=== PATIENT | male | born 1970 | race Caucasian/White ===

== ENCOUNTER 2018-09-12 19:11 | Emergency (ER) | payer SELFPAY ==
--- NOTE | 2018-09-12 19:56 | ER Document Report ---
HPI - HPI Pain Level: 5 Notes: Patient is a 48-year-old male who presents to the ED complaining of right upper dental pain #2 x2 days. He has not noticed any obvious abscess or purulent discharge. Patient states that he is still able to eat and drink, but does have a decreased p.o. intake due to the pain. He has tried some over-the- counter meds with minimal relief. No other concerns or complaints. Patient states that his tooth fractured yesterday and he has had intermittent sharp pain since. Denies any headache, fever, head injury, neck pain, hoarseness, drooling, URI, sore throat, chest pain, palpitations, syncope, cough, shortness of breath, wheeze, dyspnea, abdominal pain, nausea/vomiting/diarrhea, urinary retention, dysuria, hematuria, or rash. - ROS Systems Reviewed and Negative: Yes All other systems reviewed and negative Past Medical History - Social History Smoking Status: Current Every Day Smoker Frequency of alcohol use: Occasional Drug Abuse: None Family History: Reviewed & Not Pertinent Patient has suicidal ideation: No Patient has homicidal ideation: No - Past Medical History Cardiac Medical History: Reports: Hx Hypertension Renal/ Medical History: Denies: Hx Peritoneal Dialysis Past Surgical History: Reports: Hx Vascular Surgery - leg stent Vertical Provider Document - CONSTITUTIONAL Agree With Documented VS: Yes Notes: PHYSICAL EXAMINATION: GENERAL: Well-appearing, well-nourished and in no acute distress. HEAD: Atraumatic, normocephalic. EYES: Pupils equal round and reactive to light, extraocular movements intact, sclera anicteric, conjunctiva are normal. ENT: EAC clear b/l. TM's intact b/l without erythema, fluid, or perforation. Nares patent and without discharge. oropharynx clear without exudates. No tonsilar hypertrophy or erythema. Moist mucous membranes. No sinus tenderness. Uvula midline. No palatine shift. No tongue protrusion. No respiratory compromise. Mouth: Poor dentition. + severe decay and mild gingivitis. No obvious abscess or discharge noted. No facial swelling. + tenderness to tooth #2. NECK: Normal range of motion, supple without lymphadenopathy. No rigidity/ meningismus. LUNGS: Breath sounds clear to auscultation bilaterally and equal. No wheezes rales or rhonchi. HEART: Regular rate and rhythm without murmurs, rubs, gallops. NEUROLOGICAL: Cranial nerves grossly intact. Normal speech, normal gait. Normal sensory, motor exams PSYCH: Normal mood, normal affect. SKIN: Warm, Dry, normal turgor, no rashes or lesions noted. - INFECTION CONTROL TRAVEL OUTSIDE OF THE [place] IN LAST 30 DAYS: No Course - Re-evaluation Re-evalutation: 09/12/18 20:05 Patient is an afebrile, well-hydrated, 48-year-old male who presents to the ED with dental pain, suspect nerve root etiology versus infection. Vitals are acceptable. PE is otherwise unremarkable. No I&D, labs, or imaging warranted at this time based on H&P. Viscous lidocaine dispensed today. Dental blocked performed today successfully w/o complications. Pt tolerated proc well, no complications. I will send him home with a prescription for cleocin. Low suspicion for any meningitis, sepsis, peritonsillar/pharyngeal abscess, respiratory compromise, Tyron's, temporal arteritis, or other emergent systemic condition at this time. Patient is aware this condition can change from initial presentation and he needs to monitor symptoms closely. Conservative measures otherwise for symptoms. Call to schedule an appointment with a dentist for further evaluation and management. Recheck with your PCM this week as well. Return to the ED with any worsening/concerning symptoms otherwise as reviewed in discharge. Patient is in agreement. - Vital Signs Vital signs: Temp Pulse Resp BP Pulse Ox 98.0 F 76 18 156/99 H 97 09/12/18 19:23 09/12/18 19:23 09/12/18 19:23 09/12/18 19:23 09/12/18 19:23 Procedures - Additional Procedures Dental block Time performed: 20:00 Additional Procedures: Other - Local dental block to #2. Pt tolerated proc well , no complications. Discharge - Discharge Clinical Impression: Pain, dental Condition: Stable Disposition: HOME, SELF-CARE Instructions: Clindamycin ([facility]), Toothache ([facility]) Additional Instructions: [employer] and floss twice daily Maintain fluid intake Take antibiotics as directed Mouthwash, salt water gargles, peroxide rinse as needed Tylenol/ibuprofen as needed Recheck with PCM this week Call today/tomorrow and schedule an appointment with your dentist for further evaluation Return to the ED with any worsening symptoms and/or development of fever, headache, facial swelling, swelling of lips/tongue/throat, trouble swallowing, drooling, hoarseness, neck pain/stiffness, chest pain, palpitations, syncope, shortness of breath, trouble breathing, abdominal pain, n/v/d, numbness/tingling , or other worsening symptoms that are concerning to you. Prescriptions: Benzonatate [Tessalon Perle 100 mg Capsule] 100 mg PO Q8HP PRN #15 cap PRN Reason: Clindamycin HCl [Cleocin 300 mg Capsule] 300 mg PO TID #30 capsule Forms: Elevated Blood Pressure Referrals: [facility] [Provider Group] - Follow up as needed
[2018-09-12] MEDS: BUPIVACAINE HCL 0.75% INJ/PF (7.5 MG/1 ML) 10 ML SDV INJ ONE (20:00)
[2018-09-12 20:15] VITALS: BP 160/114
[2018-09-12] MEDS: LIDOCAINE 2% VISCOUS SOLN 20 ML UDCUP PO ONE (20:21)
== END 2018-09-12 20:24 | disposition home or self-care (01) ==
LOC: ER 19:11
DX: K08.89 Other specified disorders of teeth and supporting structures (principal); K02.9 Dental caries, unspecified; K05.10 Chronic gingivitis, plaque induced; F17.200 Nicotine dependence, unspecified, uncomplicated
CPT/HCPCS: 99282; J3490 ×2

== ENCOUNTER 2018-12-12 15:02 | Emergency (ER) | payer SELFPAY ==
--- NOTE | 2018-12-12 16:06 | ER Document Report ---
ED Medical Screen (RME) - General Chief Complaint: Foot Pain Stated Complaint: LEFT FOOT PAIN, NUMBNESS Time Seen by Provider: 12/12/18 15:53 TRAVEL OUTSIDE OF THE [place] IN LAST 30 DAYS: No - HPI Notes: 12/12/18 16:03 Patient is a 48-year-old male that presents to the emergency department for chief complaint of left foot pain. Patient reports for the last 3-4 days he has had pain and poor perfusion in his left foot. About 7 years ago he had a stent placed in his femoral artery to repair a blockage which was likely related to a knee surgery. He has not had any issues until the last 3-4 days. He states intermittently his right foot will go white and when it does it becomes painful. He states sometimes is hard to feel pulse in the foot. Currently he states that his foot appears normal and he is feeling better. The symptoms do come and go. He denies injury. ROS: GENERAL: Denies fever of chills CV: Denies chest pain PHYSICAL EXAMINATION: GENERAL: Well-appearing, well-nourished and in no acute distress. HEAD: Atraumatic, normocephalic. EYES: Pupils equal round extraocular movements intact, conjunctiva are normal. ENT: Nares patent NECK: Normal range of motion LUNGS: No respiratory distress CV: 4-second capillary refill bilateral feet, +2/4 bilateral DP pulses Musculoskeletal: Normal range of motion NEUROLOGICAL: Normal speech, normal gait. PSYCH: Normal mood, normal affect. MDM: Patient seen and examined for rapid initial assessment. Vital signs reviewed. A comprehensive ED assessment and evaluation of the patient, analysis of test results and completion of the medical decision making process will be conducted by additional ED providers. - Related Data Allergies/Adverse Reactions: Penicillins Allergy (Verified 09/12/18 19:11) Past Medical History - Social History Chew tobacco use (# tins/day): No Frequency of alcohol use: Occasional Drug Abuse: None - Past Medical History Cardiac Medical History: Reports: Hx Hypertension Renal/ Medical History: Denies: Hx Peritoneal Dialysis Past Surgical History: Reports: Hx Appendectomy, Hx Orthopedic Surgery - L acl ,, Hx Vascular Surgery - leg stent Physical Exam - Vital signs Vitals: Temp Pulse Resp BP Pulse Ox 98.1 F 82 16 146/96 H 97 12/12/18 15:05 12/12/18 15:05 12/12/18 15:05 12/12/18 15:05 12/12/18 15:05 Course - Vital Signs Vital signs: Temp Pulse Resp BP Pulse Ox 98.1 F 82 16 146/96 H 97 12/12/18 15:05 12/12/18 15:05 12/12/18 15:05 12/12/18 15:05 12/12/18 15:05
--- NOTE | 2018-12-12 17:25 | RADIOLOGY REPORT (SQ) ---
EXAM DESCRIPTION: VENOUS UNILATERAL LOWER COMPLETED DATE/TIME: 12/12/2018 5:17 pm REASON FOR STUDY: left leg pain COMPARISON: None. TECHNIQUE: Dynamic and static shafer scale and color images acquired of the left leg venous system. Se lected spectral images acquired with additional compression and augmentation maneuvers. The contralat eral common femoral vein and saphenofemoral junction were also imaged. Images stored on PACS. LIMITATIONS: None. FINDINGS: COMMON FEMORAL: Normal phasicity, compression and augmentation. No visualized echogenic ma terial on shafer scale. No defects on color images. FEMORAL: Normal compression and augmentation. No visualized echogenic material on shafer scale. No defe cts on color images. POPLITEAL: Normal compression, augmentation. No visualized echogenic material on shafer scale. No defec ts on color images. CALF VESSELS: Normal compression, augmentation. No visualized echogenic material on shafer scale. No de fects on color images. GSV and SSV: Normal compression, augmentation. No visualized echogenic material on shafer scale. No def ects on color images. ANY DEEP VENOUS INSUFFICIENCY: Not evaluated. ANY EVIDENCE OF POPLITEAL CYST: 4 cm loculated septated popliteal cysts. OTHER: No other significant finding. CONTRALATERAL COMMON FEMORAL VEIN AND SAPHENOFEMORAL JUNCTION: Normal phasicity, compression and augmentation. No visualized echogenic material on shafer scale. No de fects on color images. IMPRESSION: NO EVIDENCE DVT OR SVT IN THE LEFT LEG. Popliteal cyst. TECHNICAL DOCUMENTATION: JOB ID: [id number] [employer]- All Rights Reserved Reading location - IP/workstation name: [email or web address]
--- NOTE | 2018-12-12 17:36 | ER Document Report ---
ED Extremity Problem, Lower - General Chief Complaint: Foot Pain Stated Complaint: LEFT FOOT PAIN, NUMBNESS Time Seen by Provider: 12/12/18 15:53 Mode of Arrival: Ambulatory Information source: Patient Notes: Chief complaint: Right lower leg pain History of complain:( obtained from----patient)Patient is a 48-year-old male that presents to the emergency department for chief complaint of left foot pain. Patient reports for the last 3-4 days he has had pain and poor perfusion in his left foot. About 7 years ago he had a stent placed in his femoral artery to repair a blockage which was likely related to a knee surgery. He has not had any issues until the last 3-4 days. He states intermittently his right foot will go white and when it does it becomes painful. He states sometimes is hard to feel pulse in the foot. Onset: As above Duration: Gradual Severity: Mild to moderate variable Quality: Sharp Context: Peripheral vascular disease Exacerbating factor and relieving factors: Standing for long time REVIEW OF SYSTEMS: CONSTITUTIONAL : Denies fever, chills, or sweats. Denies recent illness. EENT: Denies eye, ear, throat, or mouth pain or symptoms. Denies nasal or sinus congestion or discharge. Denies throat, tongue, or mouth swelling or difficulty swallowing. CARDIOVASCULAR: Denies chest pain. Denies palpitations or racing or irregular heart beat. Denies ankle edema. RESPIRATORY: Denies cough, cold, or chest congestion. Denies shortness of breath, difficulty breathing, or wheezing. GASTROINTESTINAL: Denies distention. Denies nausea, vomiting, or diarrhea. Denies blood in vomitus, stools, or per rectum. Denies black, tarry stools. Denies constipation. GENITOURINARY: Denies difficulty urinating, painful urination, burning, frequency, blood in urine, or discharge. FEMALE GENITOURINARY: Denies vaginal bleeding, heavy or abnormal periods, irregular periods. Denies vaginal discharge or odor. MUSCULOSKELETAL: Denies back or neck pain or stiffness. Denies joint pain or swelling. SKIN: Denies rash, lesions or sores. HEMATOLOGIC : Denies easy bruising or bleeding. LYMPHATIC: Denies swollen, enlarged glands. NEUROLOGICAL: Denies confusion or altered mental status. Denies passing out or loss of consciousness. Denies dizziness or lightheadedness. Denies headache. Denies weakness or paralysis or loss of use of either side. Denies problems with gait or speech. Denies sensory loss, numbness, or tingling. Denies seizures. PSYCHIATRIC: Denies anxiety or stress. Denies depression, suicidal ideation, or homicidal ideation. ALL OTHER SYSTEMS REVIEWED AND NEGATIVE. PHYSICAL EXAMINATION: GENERAL: Well-appearing, well-nourished and in no acute distress. HEAD: Atraumatic, normocephalic. EYES: Pupils equal round and reactive to light, extraocular movements intact, conjunctiva are normal. ENT: Nares patent, oropharynx clear without exudates. Moist mucous membranes. NECK: Normal range of motion, supple without lymphadenopathy LUNGS: Breath sounds clear to auscultation bilaterally and equal. No wheezes rales or rhonchi. HEART: Regular rate and rhythm without murmurs ABDOMEN: Soft, nontender, nondistended abdomen. No guarding, no rebound. No masses appreciated. Examination of genitals-deferred Musculoskeletal: Normal range of motion, no pitting or edema. No cyanosis. Left lower leg shows -normal skin color. No loss of hair, good dorsalis pedis and posterior tibialis pulses. Nontender on palpation. NEUROLOGICAL: Cranial nerves grossly intact. Normal speech, normal gait. Normal sensory, motor exams PSYCH: Normal mood, normal affect. SKIN: Warm, Dry, normal turgor, no rashes or lesions noted. Dictation was performed using [email or web address] voice recognition software TRAVEL OUTSIDE OF THE [place] IN LAST 30 DAYS: No - HPI Notes: Dictated - Related Data Allergies/Adverse Reactions: Penicillins Allergy (Verified 09/12/18 19:11) Past Medical History - Social History Smoking Status: Current Every Day Smoker Chew tobacco use (# tins/day): No Smoking Education Provided: Yes Frequency of alcohol use: Occasional Drug Abuse: None Lives with: Family Family History: Reviewed & Not Pertinent Patient has suicidal ideation: No Patient has homicidal ideation: No - Past Medical History Cardiac Medical History: Reports: Hx Hypertension Renal/ Medical History: Denies: Hx Peritoneal Dialysis Past Surgical History: Reports: Hx Appendectomy, Hx Orthopedic Surgery - L acl ,, Hx Vascular Surgery - leg stent Review of Systems - Review of Systems Notes: Dictated Physical Exam - Vital signs Vitals: Temp Pulse Resp BP Pulse Ox 98.1 F 82 16 146/96 H 97 12/12/18 15:05 12/12/18 15:05 12/12/18 15:05 12/12/18 15:05 12/12/18 15:05 - Notes Notes: Dictated Course - Re-evaluation Re-evalutation: 12/12/18 17:35 He was explained that at this point we do not need to do anything in the emergency room but he to follow-up with primary care physician to do complete blood work including cholesterol. And possibly vascular studies. Smoking cessation is discussed to - Vital Signs Vital signs: Temp Pulse Resp BP Pulse Ox 98.1 F 82 16 146/96 H 97 12/12/18 15:05 12/12/18 15:05 12/12/18 15:05 12/12/18 15:05 12/12/18 15:05 Discharge - Discharge Clinical Impression: Leg pain, left Condition: Fair Disposition: HOME, SELF-CARE Instructions: Leg Pain Nonspecific ([facility]), Peripheral Vascular Disease ([facility])
[2018-12-12 17:54] VITALS: BP 158/107
== END 2018-12-12 17:55 | disposition home or self-care (01) ==
LOC: ER 15:02
DX: M79.672 Pain in left foot (principal); Z95.820 Peripheral vascular angioplasty status with implants and grafts; I10 Essential (primary) hypertension; F17.200 Nicotine dependence, unspecified, uncomplicated; Z71.6 Tobacco abuse counseling; Z88.0 Allergy status to penicillin
CPT/HCPCS: 93971; 99284

== ENCOUNTER 2019-04-22 18:03 | Emergency (ER) | payer OTHER ==
[2019-04-22] MEDS ORDERED: KETOROLAC TROMETHAMINE INJ/PF 30 MG/1 ML SDV IV ONE (18:30)
[2019-04-22] MEDS ORDERED: ONDANSETRON HCL INJ/PF 4 MG/2 ML SDV IV ONE (18:30)
--- NOTE | 2019-04-22 18:43 | ER Document Report ---
ED Medical Screen (RME) - General Chief Complaint: Abdominal Pain Stated Complaint: ABDOMINAL/GROIN PAIN Time Seen by Provider: 04/22/19 18:22 Mode of Arrival: Ambulatory Information source: Patient TRAVEL OUTSIDE OF THE [place] IN LAST 30 DAYS: No - HPI Patient complains to provider of: LEFT GROING PAIN Notes: 04/22/19 18:31 Patient is here with complaints of left groin pain. The patient states that he twisted at work few weeks ago to avoid falling and injuring himself and has had left groin pain since. He does a lot of heavy lifting and states the pain seems to be getting worse and he feels like he has some mild swelling in the left groin area. He also feels like he has not been having normal bowel movements and vomited. Exam Nontoxic, no distress. Lungs clear and equal throughout. Heart sounds normal. Left inguinal tenderness with no obvious mass. No obvious scrotal mass or hernia. Plan CBC, CMP, lipase, urine, saline lock, Toradol, Zofran, CT abdomen pelvis with IV contrast. An initial examination was made on the patient as part of the triage process, and it was determined a more comprehensive evaluation was necessary. Initial labs were ordered and patient was transferred to another provider in the ED who assumed care and finished evaluation and plan. - Related Data Allergies/Adverse Reactions: Penicillins Allergy (Verified 04/22/19 18:04) Past Medical History - Past Medical History Cardiac Medical History: Reports: Hx Hypertension Renal/ Medical History: Denies: Hx Peritoneal Dialysis Past Surgical History: Reports: Hx Appendectomy, Hx Orthopedic Surgery - L acl ,, Hx Vascular Surgery - leg stent Physical Exam - Vital signs Vitals: Temp Pulse Resp BP Pulse Ox 97.9 F 80 18 157/96 H 96 04/22/19 18:08 04/22/19 18:08 04/22/19 18:08 04/22/19 18:08 04/22/19 18:08 Course - Vital Signs Vital signs: Temp Pulse Resp BP Pulse Ox 97.9 F 80 18 157/96 H 96 04/22/19 18:08 04/22/19 18:08 04/22/19 18:08 04/22/19 18:08 04/22/19 18:08
[2019-04-22 18:50] LABS: ABSOLUTE BASOPHILS # (AUTO) 0.1 10^3/uL (0.0-0.2); ABSOLUTE EOSINOPHILS # (AUTO) 0.2 10^3/uL (0.0-0.6); ABSOLUTE LYMPHOCYTES (AUTO) 2.1 10^3/uL (0.5-4.7); ABSOLUTE MONOCYTES (AUTO) 0.8 10^3/uL (0.1-1.4); ABSOLUTE NEUT (AUTO) 6.5 10^3/uL (1.7-8.2); BASOPHILS % (AUTO) 1.2 % (0-2); EOSINOPHILS % (AUTO) 1.9 % (0-6); HEMATOCRIT 45.6 % (37.9-51.0); HEMOGLOBIN 15.9 g/dL (13.5-17.0); LYMPHOCYTES % (AUTO) 21.8 % (13-45); MEAN CORPUSCULAR HEMOGLOBIN 33.5 pg (27.0-33.4); MEAN CORPUSCULAR HGB CONC 34.9 g/dL (32.0-36.0); MEAN CORPUSCULAR VOLUME 96 fl (80-97); PLATELET COUNT 224 10^3/uL (150-450); RED BLOOD COUNT 4.75 10^6/uL (4.35-5.55); RED CELL DISTRIBUTION WIDTH 13.4 % (11.5-14.0); SEGMENTED NEUTROPHILS % (AUTO) 67.1 % (42-78); TOTAL CELLS COUNTED % (AUTO) 100 %; WHITE BLOOD COUNT 9.7 10^3/uL (4.0-10.5)
[2019-04-22 19:05] LABS: ALANINE AMINOTRANSFERASE 64 U/L (21-72); ALBUMIN 4.7 g/dL (3.5-5.0); ALKALINE PHOSPHATASE 93 U/L (38-126); ANION GAP 10 (5-19); ASPARTATE AMINO TRANSFERASE 46 U/L (17-59); BILIRUBIN,DIRECT 0.4 mg/dL (0.0-0.4); BILIRUBIN,TOTAL 1.1 mg/dL (0.2-1.3); BLOOD UREA NITROGEN 11 mg/dL (7-20); CALCIUM 9.8 mg/dL (8.4-10.2); CARBON DIOXIDE 30 mmol/L (22-30); CHLORIDE 102 mmol/L (98-107); GLUCOSE 123 mg/dL (75-110); LIPASE 133.2 U/L (23-300); POTASSIUM 4.5 mmol/L (3.6-5.0); SODIUM 141.6 mmol/L (137-145); TOTAL PROTEIN 8.3 g/dL (6.3-8.2)
[2019-04-22 20:12] LABS: APPEARANCE,URINE SLIGHTLY-CLOUDY; BILIRUBIN,URINE NEGATIVE (NEGATIVE); GLUCOSE, URINE NEGATIVE (NEGATIVE); KETONES,URINE TRACE mg/dL (NEGATIVE); LEUKOCYTE ESTERASE,URINE NEGATIVE (NEGATIVE); NITRITE,URINE NEGATIVE (NEGATIVE); PROTEIN,URINE 30 mg/dL (NEGATIVE); URINE SPECIFIC GRAVITY 1.028; UROBILINOGEN,URINE NEGATIVE mg/dL (<2.0)
[2019-04-22 20:13] LABS: COLOR,URINE YELLOW
--- NOTE | 2019-04-22 20:22 | RADIOLOGY REPORT (SQ) ---
CT ABDOMEN PELVIS WITH IV CONTRAST HISTORY: Left groin pain. COMPARISON: None. TECHNIQUE: CT scan of the abdomen and pelvis was performed with IV contrast. This exam was performed according to our departmental dose-optimization program, which includes automated exposure control, adjustment of the mA and/or kV according to patient size and/or use of iterative reconstruction technique. FINDINGS: The lung bases are clear. No pleural or pericardial effusions. There is no hiatal hernia. Hepatic steatosis. The gallbladder, spleen, pancreas, adrenal glands, and kidneys are normal. No hydronephrosis. The pelvic organs are normal. There are scattered colonic diverticula without surrounding inflammatory changes. No small bowel obstruction. The appendix is not seen. No intraperitoneal free fluid or free air is seen. The aorta is normal caliber. No acute osseous findings are appreciated. There is a small left fat-containing inguinal hernia, without inflammatory changes. IMPRESSION: 1. Small left fat-containing inguinal hernia, without bowel loops or inflammatory changes in the hernia sac. 2. Diverticulosis without inflammatory changes.
[2019-04-22] MEDS ORDERED: MORPHINE SULFATE 10 MG/ML INJ IV ONE (22:54)
--- NOTE | 2019-04-22 23:04 | ER Document Report ---
ED General - General Chief Complaint: Abdominal Pain Stated Complaint: ABDOMINAL/GROIN PAIN Time Seen by Provider: 04/22/19 18:22 Primary Care Provider: ENRIQUE HEWITT MD [LOURDES CASTRO] - Follow up in 3-5 days Mode of Arrival: Ambulatory Notes: Patient is a 49-year-old male that presents to the emergency department for chief complaint of left groin pain. Patient states that his been having some pain in his left side over the past few weeks, and it has made his way down into his groin, he thinks he may have had an injury at work, where he twisted and awkward way, after lifting a heavy object. He also states he has been constipated and straining in the bathroom. Is a history of a inguinal hernia on the right, which she had surgery for in the past. He thinks he may have a hernia now on the left side. He had an episode of vomiting, but states that his nausea is well controlled now. Denies any any blood in the urine, or having any significant dysuria or hematuria. He also denies any recent fevers, chills, night sweats. He currently rates his pain as a 6 out of 10 describes as a sharp pain in his left groin, constant in nature. Past Medical History: Hypertension, peripheral vascular disease Past Surgical History: Hernia repair, ACL repair, stents in his right lower e xtremity Social History: Admits to smoking cigarettes and occasional alcohol use, denies illicit drug use. Family History: Reviewed and noncontributory for presenting illness Allergies: Reviewed, see documented allergy list. REVIEW OF SYSTEMS: Other than noted above, the 12 point review of systems was reviewed with the patient and were negative, all pertinent findings are included in the HPI. PHYSICAL EXAMINATION: Vital signs reviewed, nursing noted reviewed. GENERAL: Well-appearing, well-nourished and in no acute distress. HEAD: Atraumatic, normocephalic. EYES: Eyes appear normal, extraocular movements intact, sclera anicteric, conjunctiva are normal. ENT: nares patent, oropharynx clear without exudates. Moist mucous membranes. NECK: Normal range of motion, supple without lymphadenopathy LUNGS: Breath sounds clear to auscultation bilaterally and equal. No wheezes rales or rhonchi. HEART: Regular rate and rhythm without murmurs ABDOMEN: Soft, left lower quadrant tenderness with palpation, normoactive bowel sounds. No rebound, guarding, or rigidity. No masses appreciated. Male genital: There is no palpable inguinal hernia on the left or the right with Valsalva. Testicles are normal vertical lie, intact cremasteric reflex bilaterally, no testicular tenderness or masses appreciated, no bloody discharge at the meatus, otherwise normal exam. EXTREMITIES: Nontender, good range of motion, no pitting or edema. NEUROLOGICAL: No focal neurological deficits. Moves all extremities spontaneously Motor and sensory grossly intact on exam. PSYCH: Normal mood, normal affect. SKIN: Warm, Dry, normal turgor, no rashes or lesions noted on exposed skin TRAVEL OUTSIDE OF THE [place] IN LAST 30 DAYS: No - Related Data Allergies/Adverse Reactions: Penicillins Allergy (Verified 04/22/19 18:04) Past Medical History - General Information source: Patient - Social History Smoking Status: Current Every Day Smoker Family History: Reviewed & Not Pertinent Patient has suicidal ideation: No Patient has homicidal ideation: No - Past Medical History Cardiac Medical History: Reports: Hx Hypertension Renal/ Medical History: Denies: Hx Peritoneal Dialysis Past Surgical History: Reports: Hx Appendectomy, Hx Orthopedic Surgery - L acl , , Hx Vascular Surgery - leg stent Physical Exam - Vital signs Vitals: Temp Pulse Resp BP Pulse Ox 97.9 F 80 18 157/96 H 96 04/22/19 18:08 04/22/19 18:08 04/22/19 18:08 04/22/19 18:08 04/22/19 18:08 Course - Re-evaluation Re-evalutation: Patient seen and examined vital signs reviewed. Laboratory data and/or imaging were ordered as appropriate for the patient's presenting symptoms and complaint, with consideration of any critical or life threatening conditions that may be associated with their obtained history and exam as noted above. Patient was treated with Zofran and Toradol in triage, he was given IV morphine as his pain did come back. Results were reviewed when available and demonstrated small left fat-containing inguinal hernia, likely explain the patient's symptoms, his blood work is also unremarkable. The patient was re-evaluated and was stable Evaluation was most consistent with left inguinal hernia, fat-containing, nonemergent, nonobstructive, plan for discharge home with NSAIDs, follow-up with surgery, he is also given prescription for MiraLAX to treat his constipation that he is been describing. Results were discussed with the patient at this point, after careful consideration I feel that that patient can be discharged from the emergency department, the patient was educated treatments and reasons to return to the emergency department based on their presumed diagnosis as noted above, they were advised to followup with a primary care physician in 2-3 days. Patient was agreeable to plan of care. *Note is created using voice recognition software and may contain spelling, syntax or grammatical errors. Laboratory 04/22/19 04/22/19 04/22/19 18:30 18:30 19:25 WBC 9.7 RBC 4.75 Hgb 15.9 Hct 45.6 MCV 96 MCH 33.5 H MCHC 34.9 RDW 13.4 Plt Count 224 Seg Neutrophils % 67.1 Lymphocytes % 21.8 Monocytes % 8.0 Eosinophils % 1.9 Basophils % 1.2 Absolute Neutrophils 6.5 Absolute Lymphocytes 2.1 Absolute Monocytes 0.8 Absolute Eosinophils 0.2 Absolute Basophils 0.1 Sodium 141.6 Potassium 4.5 Chloride 102 Carbon Dioxide 30 Anion Gap 10 BUN 11 Creatinine 1.14 Est GFR ( Amer) > 60 Est GFR (Non-Af Amer) > 60 Glucose 123 H Calcium 9.8 Total Bilirubin 1.1 Direct Bilirubin 0.4 Neonat Total Bilirubin Not Reportable Neonat Direct Bilirubin Not Reportable Neonat Indirect Bili Not Reportable AST 46 ALT 64 Alkaline Phosphatase 93 Total Protein 8.3 H Albumin 4.7 Lipase 133.2 Urine Color YELLOW Urine Appearance SLIGHTLY-CLOUDY Urine pH 5.0 Ur Specific [place] 1.028 Urine Protein 30 H Urine Glucose (UA) NEGATIVE Urine Ketones TRACE H Urine Blood NEGATIVE Urine Nitrite NEGATIVE Urine Bilirubin NEGATIVE Urine Urobilinogen NEGATIVE Ur Leukocyte Esterase NEGATIVE Urine WBC (Auto) 0 Urine RBC (Auto) 1 Urine Mucus (Auto) FEW Urine Ascorbic Acid NEGATIVE Abdomen/Pelvis CT 04/22/19 18:31 IMPRESSION: 1. Small left fat-containing inguinal hernia, without bowel loops or inflammatory changes in the hernia sac. 2. Diverticulosis without inflammatory changes. - Vital Signs Vital signs: Temp Pulse Resp BP Pulse Ox 97.9 F 80 18 157/96 H 96 04/22/19 18:08 04/22/19 18:08 04/22/19 18:08 04/22/19 18:08 04/22/19 18:08 - Laboratory Result Diagrams: 04/22/19 18:30 04/22/19 18:30 Laboratory results interpreted by me: 04/22/19 04/22/19 04/22/19 18:30 18:30 19:25 MCH 33.5 H Glucose 123 H Total Protein 8.3 H Urine Protein 30 H Urine Ketones TRACE H Discharge - Discharge Clinical Impression: Left inguinal hernia Condition: Stable Disposition: HOME, SELF-CARE Instructions: Hernia ([facility]) Additional Instructions: Please take all medications as prescribed, and please follow-up with the surgeon, call for an appointment tomorrow. Prescriptions: Ibuprofen [Motrin 600 Mg Tablet] 600 mg PO TID #15 tablet Ondansetron [Zofran Odt 4 mg Tablet] 1 tab PO Q8H PRN #15 tab.rapdis PRN Reason: For Nausea/Vomiting Polyethylene Glycol 3350 [Miralax] 17 gm PO DAILY #238 gm Referrals: ENRIQUE HEWITT MD [LOURDES CASTRO] - Follow up in 3-5 days
[2019-04-22 23:16] VITALS: BP 153/95
== END 2019-04-22 23:25 | disposition home or self-care (01) ==
LOC: ER 18:03
DX: K40.90 Unilateral inguinal hernia, without obstruction or gangrene, not specified as recurrent (principal); R10.9 Unspecified abdominal pain; R10.30 Lower abdominal pain, unspecified; R10.32 Left lower quadrant pain; R11.10 Vomiting, unspecified; X50.0XXA Overexertion from strenuous movement or load, initial encounter; I10 Essential (primary) hypertension; F17.210 Nicotine dependence, cigarettes, uncomplicated
CPT/HCPCS: 99284; 96374; 96375; 36415; 83690; 85025; 80053; 81001; 74177; J1885; J2270; J2405

== ENCOUNTER 2019-09-22 10:23 | Emergency (ER) | payer SELFPAY ==
[2019-09-22] MEDS ORDERED: COLCHICINE 0.6 MG TABLET PO ONE ×2 (11:11)
[2019-09-22] MEDS ORDERED: OXYCODONE-ACETAMINOPHEN 5-325 MG TABLET PO ONE (11:12)
--- NOTE | 2019-09-22 11:25 | ER Document Report ---
HPI - HPI Time Seen by Provider: 09/22/19 11:03 Pain Level: 5 Notes: Patient is a 49-year-old male with past medical history of hypertension presenting to the emergency department with complaint of left foot pain. Patient reports pain has been ongoing for 1 week, states that the pain started in the left great toe and is now progressed up into the foot. He denies any injury. He states pain is worsened and now has swelling and redness. Patient reports that it is very painful to the touch. He also reports he has been out of his high blood pressure medications for a few months. - CONSTITUTIONAL Constitutional: DENIES: Fever, Chills - MUSCULOSKELETAL Musculoskeletal: REPORTS: Extremity pain - right foot - DERM Skin Color: Erythema Past Medical History - General Information source: Patient - Social History Smoking Status: Current Every Day Smoker Frequency of alcohol use: Occasional Drug Abuse: None Family History: Reviewed & Not Pertinent Patient has suicidal ideation: No Patient has homicidal ideation: No - Past Medical History Cardiac Medical History: Reports: Hx Hypertension Renal/ Medical History: Denies: Hx Peritoneal Dialysis Past Surgical History: Reports: Hx Appendectomy, Hx Orthopedic Surgery - L acl , , Hx Vascular Surgery - leg stent Vertical Provider Document - CONSTITUTIONAL Notes: PHYSICAL EXAMINATION: GENERAL: Well-appearing, well-nourished and in no acute distress. HEAD: Atraumatic, normocephalic. EYES: Pupils equal round and reactive to light, extraocular movements intact, sclera anicteric, conjunctiva are normal. ENT: Nares patent, oropharynx clear without exudates. Moist mucous membranes. NECK: Normal range of motion, supple without lymphadenopathy LUNGS: Breath sounds clear to auscultation bilaterally and equal. No wheezes rales or rhonchi. HEART: Regular rate and rhythm without murmurs ABDOMEN: Soft, nontender, nondistended abdomen. No guarding, no rebound. No masses appreciated. Musculoskeletal: Swelling and erythema noted to left foot originating at the great toe with slight extension to the dorsal surface of the foot. Tenderness with any palpation. No heat noted. Strong dorsalis pedis pulse, cap refill less than 3 seconds. NEUROLOGICAL: Cranial nerves grossly intact. Normal speech. Normal sensory, motor exams PSYCH: Normal mood, normal affect. SKIN: Warm, Dry, normal turgor, no rashes or lesions noted. - INFECTION CONTROL TRAVEL OUTSIDE OF THE [place] IN LAST 30 DAYS: No Course - Re-evaluation Re-evalutation: Foot X-Ray 09/22/19 11:11 IMPRESSION: NEGATIVE STUDY OF THE LEFT FOOT. NO RADIOGRAPHIC EVIDENCE OF ACUTE INJURY. Examination is most consistent with acute gout attack. Patient given colchicine here in the emergency department. Patient will be discharged home with refill for his antihypertensives. Patient encouraged to follow-up with primary care. Discussed ED return precautions. Patient verbalized understanding and agreement with same. - Vital Signs Vital signs: Temp Pulse Resp BP Pulse Ox 97.9 F 93 16 152/103 H 96 09/22/19 10:32 09/22/19 10:32 09/22/19 10:32 09/22/19 10:32 09/22/19 10:32 Discharge - Discharge Clinical Impression: Left foot pain Hypertension Qualifiers: Hypertension type: unspecified Qualified Code(s): I10 - Essential (primary) hypertension Gout Qualifiers: Gout site: foot Gout etiology: unspecified cause Chronicity: acute Laterality: left Qualified Code(s): M10.9 - Gout, unspecified Condition: Stable Disposition: HOME, SELF-CARE Additional Instructions: Gout You have been diagnosed as having gout. Gout is a problem caused by an excess of uric acid, a natural chemical found in the body. The cause of this disease is unknown. Gout arthritis occurs when crystals of uric acid form in the joints. The big toe is the most common joint involved, but any joint can become affected. Persons with gout may also form uric acid kidney stones, resulting in flank pain and blood in the urine. Nodules of uric acid may form under the skin. The first step of treatment is to decrease the inflammation in the joint with antiinflammatory medication. Medication to lower the uric acid level in the blood may then be prescribed. This medication should be taken regularly, as any sudden change in dosage may provoke an attack of gout. Some foods, such as red meat, can provoke an attack in some gout sufferers. Call the doctor if new symptoms arise, or if you do not improve. Gout Diet Changing your diet can decrease the uric acid in your blood. High levels of uric acid cause gouty arthritis and uric acid kidney stones. If you have gout, you should avoid meats that are high in purine. Meat products to avoid include liver, kidneys, and brains. In general, poultry is better than red meats. Seafoods to avoid include anchovies, sardines, serna, mackerel, and scallops. In addition to limiting purine-rich foods, people with gout should limit protein intake to 10-15% of total calories. Carbohydrate intake should be around 50% of total daily calories. Limit fat intake to 30% of total daily calories. Cholesterol intake should be less than 300 mg/day. Maintain or achieve a healthy body weight. Weight loss should be gradual. Rapid weight loss can actually increase uric acid levels temporarily. Alcohol, especially beer, should be avoided. Get plenty of fluids. This dilutes urinary uric acid, and helps prevent uric acid kidney stones. Drink eight to twelve cups of water daily. The x-ray of your foot was negative for any fracture or dislocation. I have refilled your blood pressure medication today and gave you 2 refills. Please establish care with a primary care provider. If you do not have insurance or cannot afford a doctor you may try to establish care at the [facility]. I believe the pain and swelling in her foot is being caused by gout. There is some informational reading above regarding gout and diet that will help avoid gout flareups. The #1 treatment for gout is the combination of the 3 tablets that we gave you here in the emergency department. After that the main course of treatment is ibuprofen. Please continue to take ibuprofen 600 mg every 6 hours. Use the narcotic pain medication I have sent you home with for severe pain only. Prescriptions: Hydrocodone Bit/Acetaminophen [Hydrocodon-Acetaminophen 5-325] 1 each PO Q6H #10 tablet Lisinopril [Prinivil] 20 mg PO DAILY #30 tablet Forms: Return to Work
--- NOTE | 2019-09-22 12:31 | RADIOLOGY REPORT (SQ) ---
EXAM DESCRIPTION: FOOT LEFT COMPLETE COMPLETED DATE/TIME: 09/22/2019 12:15 pm REASON FOR STUDY: left foot swelling/pain COMPARISON: None. NUMBER OF VIEWS: Three views. TECHNIQUE: AP, lateral and oblique radiographic images acquired of the left foot. LIMITATIONS: None. FINDINGS: MINERALIZATION: Normal. BONES: There is an old oblique fracture of the 5th metatarsal. No acute fracture or dislocation. JOINTS: No effusions. SOFT TISSUES: No soft tissue swelling. No foreign body. OTHER: No other significant finding. IMPRESSION: NEGATIVE STUDY OF THE LEFT FOOT. NO RADIOGRAPHIC EVIDENCE OF ACUTE INJURY. TECHNICAL DOCUMENTATION: JOB ID: [id number] [employer]- All Rights Reserved Reading location - IP/workstation name: [email or web address]
[2019-09-22 12:53] VITALS: BP 144/102
== END 2019-09-22 13:04 | disposition home or self-care (01) ==
LOC: ER 10:23
DX: M79.672 Pain in left foot (principal); M10.9 Gout, unspecified; I10 Essential (primary) hypertension; Z79.899 Other long term (current) drug therapy; F17.200 Nicotine dependence, unspecified, uncomplicated
CPT/HCPCS: 99283

== ENCOUNTER 2019-12-21 23:06 | Emergency (ER) | payer OTHER ==
--- NOTE | 2019-12-21 23:41 | ER Document Report ---
ED Medical Screen (RME) - General Chief Complaint: Fall Stated Complaint: FALL Time Seen by Provider: 12/21/19 23:35 Notes: HPI: History is obtained from the patient and his . A 49-year-old alcoholic male who is not on blood thinners presenting for evaluation after head injury tonight. Patient states that he was sitting at a table and had a coughing episode. He states he blacked out from a coughing episode and hit his left head and face on the table. Now complains of some numbness in the left face with left-sided headache. Patient complains of mild neck pain. Patient denies other injuries or complaints. No chest pain shortness of breath or abdominal pain at this time. Denies weakness numbness or tingling in the extremities. Patient states over the last 3 days he has had some intermittent posterior headaches. Has prior history of TIA. I have greeted and performed a rapid initial assessment of this patient. A comprehensive ED assessment and evaluation of the patient, analysis of test results and completion of the medical decision making process will be conducted by additional ED providers PHYSICAL EXAMINATION: GENERAL: Well-appearing, well-nourished and in no acute distress. Patient is slurring his speech does admit to drinking 8 beers tonight. HEAD: Atraumatic, normocephalic. EYES: sclera anicteric, conjunctiva are normal. ENT: Moist mucous membranes. No nystagmus NECK: Normal range of motion. Mild tenderness in the cervical paraspinous musculature on palpation LUNGS: Normal work of breathing, lung sounds clear to auscultation HEART: 2+ radial pulses bilaterally. Regular rate and rhythm ABD: limited by positioning for exam in triage. EXTREMITIES: no pitting or edema. No cyanosis. NEUROLOGICAL: No focal neurological deficits. Moves all extremities spontaneously and on command. Patient with no facial droop. Intact sensation and motor bilaterally to the facial region. Patient with strength 5/5 bilateral upper and lower extremities and equal. Intact sensation bilateral upper and lower extremities. CN II through XII grossly intact PSYCH: Normal mood, normal affect. Intoxicated SKIN: Warm, Dry, normal turgor, no rashes or lesions noted. TRAVEL OUTSIDE OF THE [place] IN LAST 30 DAYS: No - Related Data Allergies/Adverse Reactions: Penicillins Allergy (Verified 09/22/19 11:02) Past Medical History - Social History Chew tobacco use (# tins/day): No Frequency of alcohol use: Heavy Drug Abuse: None - Past Medical History Cardiac Medical History: Reports: Hx Hypertension Renal/ Medical History: Denies: Hx Peritoneal Dialysis Past Surgical History: Reports: Hx Appendectomy, Hx Orthopedic Surgery - L acl ,, Hx Vascular Surgery - leg stent
[2019-12-21 23:57] LABS: ABSOLUTE BASOPHILS # (AUTO) 0.1 10^3/uL (0.0-0.2); ABSOLUTE EOSINOPHILS # (AUTO) 0.3 10^3/uL (0.0-0.6); ABSOLUTE MONOCYTES (AUTO) 0.5 10^3/uL (0.1-1.4); ABSOLUTE NEUT (AUTO) 6.3 10^3/uL (1.7-8.2); BASOPHILS % (AUTO) 1.3 % (0-2); EOSINOPHILS % (AUTO) 2.8 % (0-6); HEMATOCRIT 47.5 % (37.9-51.0); HEMOGLOBIN 16.8 g/dL (13.5-17.0); LYMPHOCYTES % (AUTO) 21.7 % (13-45); MEAN CORPUSCULAR HGB CONC 35.2 g/dL (32.0-36.0); MEAN CORPUSCULAR VOLUME 97 fl (80-97); MONOCYTES % (AUTO) 5.9 % (3-13); PLATELET COUNT 205 10^3/uL (150-450); RED BLOOD COUNT 4.93 10^6/uL (4.35-5.55); RED CELL DISTRIBUTION WIDTH 13.7 % (11.5-14.0); SEGMENTED NEUTROPHILS % (AUTO) 68.3 % (42-78); TOTAL CELLS COUNTED % (AUTO) 100 %; WHITE BLOOD COUNT 9.2 10^3/uL (4.0-10.5)
[2019-12-22 00:01] LABS: INTERNATIONAL RATION (INR) 0.87; PROTHROMBIN TIME 11.8 SEC (11.4-15.4)
--- NOTE | 2019-12-22 00:13 | RADIOLOGY REPORT (SQ) ---
EXAM DESCRIPTION: CT HEAD WITHOUT IV CONTRAST COMPLETED DATE/TME: 12/21/2019 23:38 CLINICAL HISTORY: 49 years, Male, trauma fell onto coffee table COMPARISON: None. TECHNIQUE: 218 Images stored on PACS. All CT scanners at this facility use dose modulation, iterative reconstruction, and/or weight based dosing when appropriate to reduce radiation dose to as low as reasonably achievable (ALARA). [facility]: Dose Right [facility]: CareDose [facility]: Dose Right [facility]: Teradose 4D [facility]: Touchbase LIMITATIONS: None. FINDINGS: The globes are intact. Polyp of the right maxillary sinus. No displaced or depressed skull fracture. No intra or extra-axial hemorrhage. CT is limited for evaluation of acute infarct. No CT evidence for large or territorial acute infarct. No mass or midline shift IMPRESSION: No acute intracranial abnormality TECHNICAL DOCUMENTATION: Quality ID # 436: Final reports with documentation of one or more dose reduction techniques (e.g., Automated exposure control, adjustment of the mA and/or kV according to patient size, use of iterative reconstruction technique) copyright 2011 [employer]- All Rights Reserved
--- NOTE | 2019-12-22 00:16 | RADIOLOGY REPORT (SQ) ---
EXAM DESCRIPTION: CT CERVICAL SPINE WITHOUT IV CONTRAST COMPLETED DATE/TME: 12/21/2019 23:38 CLINICAL HISTORY: 49 years, Male, trauma fell onto coffee table. COMPARISON: None. TECHNIQUE: 257 Images stored on PACS. All CT scanners at this facility use dose modulation, iterative reconstruction, and/or weight based dosing when appropriate to reduce radiation dose to as low as reasonably achievable (ALARA). [facility]: Dose Right [facility]: CareDose [facility]: Dose Right [facility]: Teradose 4D [facility]: [employer] LIMITATIONS: None. FINDINGS: Evaluation of spinal canal contents limited due to CT technique. Straightening of normal cervical lordosis consistent with muscle spasm/strain. Multilevel degenerative change, greatest at the C6-7 level. The atlantoaxial space is preserved. The prevertebral soft tissues are normal. Limited evaluation of the lung apices is unremarkable. Vertebral body height and alignment is preserved IMPRESSION: Straightening of the normal cervical lordosis consistent with muscle spasm/strain. Multilevel degenerative change. TECHNICAL DOCUMENTATION: Quality ID # 436: Final reports with documentation of one or more dose reduction techniques (e.g., Automated exposure control, adjustment of the mA and/or kV according to patient size, use of iterative reconstruction technique) copyright 2011 [employer]- All Rights Reserved
--- NOTE | 2019-12-22 00:22 | RADIOLOGY REPORT (SQ) ---
EXAM DESCRIPTION: XR CHEST 2 VIEWS COMPLETED DATE/TME: 12/21/2019 23:38 CLINICAL HISTORY: 49 years, Male, fall COMPARISON: None. NUMBER OF VIEWS: 2 TECHNIQUE: 2 views of the chest LIMITATIONS: None. FINDINGS: The heart size is normal. The lungs are hyperinflated but clear. No pneumothorax IMPRESSION: No acute cardiopulmonary process. Underlying hyperinflation copyright 2010 [employer]- All Rights Reserved
[2019-12-22 00:33] LABS: ALBUMIN 4.7 g/dL (3.5-5.0); ALCOHOL 188 mg/dL (NONE DETECTED); ALKALINE PHOSPHATASE 91 U/L (38-126); ANION GAP 15 (5-19); ASPARTATE AMINO TRANSFERASE 102 U/L (17-59); BILIRUBIN,DIRECT 0.1 mg/dL (0.0-0.4); BILIRUBIN,TOTAL 0.5 mg/dL (0.2-1.3); BLOOD UREA NITROGEN 8 mg/dL (7-20); CALCIUM 9.5 mg/dL (8.4-10.2); CARBON DIOXIDE 23 mmol/L (22-30); CHLORIDE 98 mmol/L (98-107); GLUCOSE 267 mg/dL (75-110); POTASSIUM 4.3 mmol/L (3.6-5.0)
[2019-12-22 01:18] VITALS: BP 131/91
--- NOTE | 2019-12-22 01:24 | ER Document Report ---
ED General - General Chief Complaint: Fall Stated Complaint: FALL Time Seen by Provider: 12/21/19 23:35 Primary Care Provider: [facility] [Primary Care Provider] - Follow up as needed Notes: Patient is a 49-year-old male that comes emergency department for chief complaint of head injury. He states he had a coughing episode where he coughed so hard that he blacked out and then he hit his head and face on the table in front of him. He states that he was dazed, he thinks that he was knocked out, he states that he had pain along the left side of his neck and some tingling along the left side of his face and he became concerned. He denies numbness in his arms or legs, incontinence, vomiting. He did have several beers to drink tonight and drinks regularly. Patient was brought to emergency department by his . Patient does also states that he has been under a lot of stress and has been getting tightness in his neck and tension headaches frequently. He denies fever/chills, he denies any other complaints. TRAVEL OUTSIDE OF THE [place] IN LAST 30 DAYS: No - Related Data Allergies/Adverse Reactions: Penicillins Allergy (Verified 09/22/19 11:02) Past Medical History - General Information source: Patient - Social History Smoking Status: Current Every Day Smoker Chew tobacco use (# tins/day): No Frequency of alcohol use: Heavy Drug Abuse: None Lives with: Family Family History: Reviewed & Not Pertinent Patient has suicidal ideation: No Patient has homicidal ideation: No - Past Medical History Cardiac Medical History: Reports: Hx Hypertension Renal/ Medical History: Denies: Hx Peritoneal Dialysis Past Surgical History: Reports: Hx Appendectomy, Hx Orthopedic Surgery - L acl ,, Hx Vascular Surgery - leg stent Review of Systems - Review of Systems Constitutional: See HPI EENT: No symptoms reported Cardiovascular: No symptoms reported Respiratory: No symptoms reported Gastrointestinal: No symptoms reported Genitourinary: No symptoms reported Male Genitourinary: No symptoms reported Musculoskeletal: See HPI Skin: No symptoms reported Hematologic/Lymphatic: No symptoms reported Neurological/Psychological: See HPI Physical Exam - Vital signs Vitals: Temp Pulse Resp BP Pulse Ox 97.9 F 90 20 122/83 96 12/21/19 23:54 12/21/19 23:54 12/21/19 23:54 12/21/19 23:54 12/21/19 23:54 - Notes Notes: GENERAL: Alert, occasional mild slurring of words, appears very mildly intoxicated, cooperative HEAD: Normocephalic, no obvious signs of trauma or tender areas over the head or face EYES: Pupils equal, round, and reactive to light. Extraocular movements intact. ENT: Oral mucosa moist, tongue midline. Oropharynx unremarkable. Airway patent. Nares patent, no nasal septal hematoma, TM's intact. NECK: Full range of motion. Supple. Trachea midline. LUNGS: Clear to auscultation bilaterally, no wheezes, rales, or rhonchi. No respiratory distress. No signs of trauma to the chest HEART: Regular rate and rhythm. No murmur ABDOMEN: Soft, non-tender. Non-distended. Bowel sounds present in all 4 kayli drants. No signs of trauma to the abdomen GENITOURINARY: Deferred EXTREMITIES: Moves all 4 extremities spontaneously. No edema, normal radial and dorsalis pedis pulses bilaterally. No cyanosis. BACK: There is tenderness along the left paracervical and trapezius muscles, some pain with range of motion laterally at the neck but range of motion is intact. No signs of trauma. No cervical, thoracic, lumbar midline tenderness. No saddle anesthesia, normal distal neurovascular exam. Moves all extremities in full range of motion. NEUROLOGICAL: Alert and oriented x3. Normal speech. Cranial nerves II through XII grossly intact. PSYCH: Normal affect, normal mood. SKIN: Warm, dry, normal turgor. No rashes or lesions noted. Course - Re-evaluation Re-evalutation: Patient with no signs of trauma and no neurological deficits on my exam. He is very mildly intoxicated on exam, his alcohol is 188. CT of the head and neck reviewed and are negative for acute findings. Patient does have evidence of a muscle spasm on the left side of the neck at the paracervical and trapezius muscles but his physical examination is actually very unremarkable otherwise. He has no complaints otherwise other than some tingling along the face and neck which he is not currently complaining about. I discussed work-up including unremarkable labs, imaging, I discussed expectations, monitoring, follow-up, and return precautions in detail with patient and at bedside. They state understanding and agreement. Stable at time of discharge. - Vital Signs Vital signs: Temp Pulse Resp BP Pulse Ox 97.9 F 90 14 131/91 H 99 12/21/19 23:54 12/21/19 23:54 12/22/19 01:01 12/22/19 01:01 12/22/19 01:01 - Laboratory Result Diagrams: 12/21/19 23:40 12/21/19 23:40 Laboratory results interpreted by me: 12/21/19 12/21/19 23:40 23:40 MCH 34.0 H Sodium 136.0 L Glucose 267 H AST 102 H - EKG Interpretation by Me Additional EKG results interpreted by me: EKG shows sinus rhythm at a rate of 95, normal axis, no T wave inversions or ST segment changes in consecutive leads, QTC of 428 Discharge - Discharge Clinical Impression: Neck pain, Hyperglycemia Head injury Qualifiers: Encounter type: initial encounter Qualified Code(s): S09.90XA - Unspecified injury of head, initial encounter Alcohol intoxication Qualifiers: Complication of substance-induced condition: with unspecified complication Qualified Code(s): F10.929 - Alcohol use, unspecified with intoxication, unspecified Condition: Stable Disposition: HOME, SELF-CARE Additional Instructions: Your imaging of the head and neck do not show any concerning findings, there is arthritis in your neck and your evaluation is consistent with developing muscle spasm. Please follow head injury precautions listed below. You most likely will have postconcussive symptoms as well. Apply heat to your neck, take muscle x-ray as prescribed, do gentle massage and stretches. Take nausea medication if needed for postconcussive symptoms. Follow close with primary care for recheck of your glucose, your glucose was elevated today. Return for any concerning or worsening symptoms Head Injury Precautions At this point, there is no evidence that your head injury is serious. Observation is necessary, however. Limit activity for the first 24 hours. Bed rest is best. During the first 24 hours, check to see approximately every two to three hours that the patient is easily arousable, responds normally, and can perform common tasks such as walking without difficulty. Contact your doctor or go to the hospital if any of the following things occur: Persistent vomiting, difficulty in arousing the patient, worsening or continued headache, or failure to improve as expected. Head injuries can cause symptoms that persist for a few days or even a few weeks. Post-Concussion Syndrome Post-concussion syndrome often follows a mild head injury. Dizziness, mild nausea, mild headache, trouble concentrating, and a general sense of "not being right" may persist for a week or two. This is a frequent complication of concussion. However, if the symptoms worsen, or new symptoms develop, you shou ld be re-examined by the physician. There is no specific cure for post-concussion syndrome. You can take mild pain medication such as ibuprofen or acetaminophen. While you should not drive if you are dizzy, you can get back to your regular activities as quickly as the symptoms will allow. And while vigorous exercise may worsen the headache, mild physical activity often is helpful. Sitting and thinking about your symptoms will worsen them. If difficulties continue, you may need referral for special therapy to help you regain full mental function. Call the physician if you are worsening, or if symptoms are still present in one week. Report any new symptoms immediately. Prescriptions: Methocarbamol [Robaxin-750] 750 mg PO QID PRN #20 tablet PRN Reason: Ondansetron [Zofran Odt 4 mg Tablet] 1 - 2 tab PO Q4H PRN #15 tab.rapdis PRN Reason: For Nausea/Vomiting Referrals: [facility] [Primary Care Provider] - Follow up as needed
--- NOTE | 2019-12-22 07:08 | EKG REPORT ---
SEVERITY:- ABNORMAL ECG - SINUS RHYTHM NONSPECIFIC T ABNORMALITIES, LATERAL LEADS : Confirmed by: Francisco Mayes MD 22-Dec-2019 07:07:58
== END 2019-12-22 01:52 | disposition home or self-care (01) ==
LOC: ER 23:06
DX: S09.90XA Unspecified injury of head, initial encounter (principal); F10.929 Alcohol use, unspecified with intoxication, unspecified; R73.9 Hyperglycemia, unspecified; R05 Cough; M54.2 Cervicalgia; R20.2 Paresthesia of skin; F17.200 Nicotine dependence, unspecified, uncomplicated; W18.30XA Fall on same level, unspecified, initial encounter; Z88.0 Allergy status to penicillin
CPT/HCPCS: 36415; 70450; 71046; 72125; 80053; 80307; 84484; 85025; 85610; 93005; 93010; 99284

== ENCOUNTER 2020-01-22 19:49 | Inpatient (IN) | payer OTHER ==
[2020-01-22] MEDS ORDERED: MORPHINE SULFATE 10 MG/ML INJ IV ONE (20:06)
[2020-01-22] MEDS ORDERED: NORMAL SALINE 1000 ML 1,000 ML IV ONE ×2 (20:07→21:38)
--- NOTE | 2020-01-22 20:08 | ER Document Report ---
ED Medical Screen (RME) - General Chief Complaint: Abdominal Pain Stated Complaint: ABDOMINAL PAIN/POSSIBLE HERNIA Time Seen by Provider: 01/22/20 19:56 Primary Care Provider: DANII LEGER [Primary Care Provider] - Follow up as needed Mode of Arrival: Ambulatory Information source: Patient Notes: Patient presents complaining of pain to the sacral and perianal area for the past 3 days. Patient reports subjective fever and nausea at home. I have greeted and performed a rapid initial assessment of this patient. A comprehensive ED assessment and evaluation of the patient, analysis of test results and completion of the medical decision making process will be conducted by additional ED providers. TRAVEL OUTSIDE OF THE [place] IN LAST 30 DAYS: No - Related Data Allergies/Adverse Reactions: Penicillins Allergy (Verified 09/22/19 11:02) Past Medical History - Past Medical History Cardiac Medical History: Reports: Hx Hypertension Renal/ Medical History: Denies: Hx Peritoneal Dialysis Past Surgical History: Reports: Hx Appendectomy, Hx Orthopedic Surgery - L acl ,, Hx Vascular Surgery - leg stent Physical Exam - Vital signs Vitals: Temp Pulse Resp BP Pulse Ox 97.9 F 114 H 18 159/92 H 97 01/22/20 19:53 01/22/20 19:53 01/22/20 19:53 01/22/20 19:53 01/22/20 19:53 - General General appearance: Alert, Anxious Notes: Patient with tenderness induration to the superior aspect of gluteal cleft that extends along the right side to the right perianal area where there is induration as well. Patient exquisitely tender upon examination. Course - Vital Signs Vital signs: Temp Pulse Resp BP Pulse Ox 97.9 F 114 H 18 159/92 H 97 01/22/20 19:53 01/22/20 19:53 01/22/20 19:53 01/22/20 19:53 01/22/20 19:53 Doctor's Discharge - Discharge Referrals: [facility],DANII [Primary Care Provider] - Follow up as needed
[2020-01-22] MEDS ORDERED: ONDANSETRON HCL INJ/PF 4 MG/2 ML SDV IV ONE (20:46)
[2020-01-22] MEDS ORDERED: HYDROMORPHONE HCL INJ/PF 2 MG/ML AMPULE IV ONE ×2 (20:46→22:37)
--- NOTE | 2020-01-22 20:48 | ER Document Report ---
ED GI Bleed / Rectal Pain - General Chief Complaint: Rectal Abscess Stated Complaint: ABDOMINAL PAIN/POSSIBLE HERNIA Time Seen by Provider: 01/22/20 19:56 Mode of Arrival: Ambulatory Notes: Patient is a 49-year-old male that comes emergency department for chief complaint of 3 days of worsening pain in the buttocks and rectum area. He states he has never had this before. He states it is difficult to sit down. He reports chills and nausea at home but denies vomiting or recorded fevers. He does not have a history of diabetes. He denies IV drug abuse. Past medical history of appendectomy, hypertension. He smokes and drinks alcohol. TRAVEL OUTSIDE OF THE [place] IN LAST 30 DAYS: No - Related Data Allergies/Adverse Reactions: Penicillins Allergy (Verified 09/22/19 11:02) Past Medical History - General Information source: Patient - Social History Smoking Status: Current Some Day Smoker Frequency of alcohol use: Social Drug Abuse: None Lives with: Family Family History: Reviewed & Not Pertinent Patient has suicidal ideation: No Patient has homicidal ideation: No - Past Medical History Cardiac Medical History: Reports: Hx Hypertension Renal/ Medical History: Denies: Hx Peritoneal Dialysis Past Surgical History: Reports: Hx Appendectomy, Hx Orthopedic Surgery - L acl ,, Hx Vascular Surgery - leg stent - Immunizations Immunizations up to date: Yes Hx Diphtheria, Pertussis, Tetanus Vaccination: Yes Review of Systems - Review of Systems Constitutional: No symptoms reported EENT: No symptoms reported Cardiovascular: No symptoms reported Respiratory: No symptoms reported Gastrointestinal: See HPI Genitourinary: No symptoms reported Male Genitourinary: No symptoms reported Musculoskeletal: No symptoms reported Skin: See HPI Hematologic/Lymphatic: No symptoms reported Neurological/Psychological: No symptoms reported Physical Exam - Vital signs Vitals: Temp Pulse Resp BP Pulse Ox 97.9 F 114 H 18 159/92 H 97 01/22/20 19:53 01/22/20 19:53 01/22/20 19:53 01/22/20 19:53 01/22/20 19:53 - Notes Notes: GENERAL: Alert, interacts well. Appears to be uncomfortable HEAD: Normocephalic, atraumatic. EYES: Pupils equal, round, and reactive to light. Extraocular movements intact. ENT: Oral mucosa moist, tongue midline. Oropharynx unremarkable. Airway patent. LUNGS: Clear to auscultation bilaterally, no wheezes, rales, or rhonchi. No respiratory distress. HEART: Regular rate and rhythm. No murmur ABDOMEN: Soft, non-tender. Non-distended. Bowel sounds present in all 4 quadra nts. Questionable but nontender inguinal hernia especially on the right. No evidence of incarceration, area is soft. GENITOURINARY: No swelling or concerning findings noted. RECTAL: There is erythema extending from the top of the gluteal cleft all the way down into the gluteal area on the right extending to the perianal area. Area around the anus is exquisitely tender, rectal exam performed and the area adjacent on the right side is also exquisitely tender. No noted drainage or obvious fluctuant head. Unremarkable otherwise. Exam performed with Kellie RN at bedside. EXTREMITIES: Moves all 4 extremities spontaneously. No edema, normal radial and dorsalis pedis pulses bilaterally. No cyanosis. BACK: no cervical, thoracic, lumbar midline tenderness. No saddle anesthesia, normal distal neurovascular exam. NEUROLOGICAL: Alert and oriented x3. Normal speech. Cranial nerves II through XII grossly intact. PSYCH: Slightly restless and anxious SKIN: Warm, dry, normal turgor. No rashes or lesions noted. Course - Re-evaluation Re-evalutation: Patient is very tender over the right gluteal cleft with extending erythema down to the perianal area with very notable tenderness in this area as well. Rectal exam is also very tender. Patient started on vancomycin, after chemistry came back and patient was noted to be a new onset type II diabetic I added cefepime, insulin, IV fluids. Patient was much more comfortable on reevaluation. CBC does show mild leukocytosis but no bandemia. Patient is not febrile. 01/22/20 21:30 I called and spoke with Dr. Zavaleta, he is in a procedure and he will call me back. Dr. Zavaleta, general surgeon, called back and states he will evaluate the patient. Patient is been evaluated by the surgeon and he requested a CT. This was performed, this shows a perianal abscess. I called and spoke with Dr. Zavaleta again, he accepts patient to his service on the medical floor. Patient states appreciation and agreement. - Vital Signs Vital signs: Temp Pulse Resp BP Pulse Ox 97.9 F 95 16 146/91 H 92 01/23/20 01:43 01/23/20 01:43 01/23/20 01:43 01/23/20 01:43 01/23/20 01:43 - Laboratory Result Diagrams: 01/22/20 20:21 01/22/20 20:21 Laboratory results interpreted by me: 01/22/20 01/22/20 01/22/20 19:56 20:21 20:21 WBC 13.5 H MCV 98 H MCH 33.9 H Lymph % (Auto) 9.0 L Absolute Neuts (auto) 11.3 H Seg Neutrophils % 83.7 H Sodium 127.3 L Chloride 87 L Glucose 565 H* POC Glucose Urine Glucose (UA) >=500 H 01/22/20 23:05 WBC MCV MCH Lymph % (Auto) Absolute Neuts (auto) Seg Neutrophils % Sodium Chloride Glucose POC Glucose 351 H Urine Glucose (UA) Discharge - Discharge Clinical Impression: Perirectal abscess, Hyperglycemia, Rectal pain Condition: Stable Disposition: ADMITTED OBSERVATION Admitting Provider: Surgicalist Unit Admitted: Surgical Floor
[2020-01-22 20:51] LABS: ABSOLUTE BASOPHILS # (AUTO) 0.1 10^3/uL (0.0-0.2); ABSOLUTE EOSINOPHILS # (AUTO) 0.1 10^3/uL (0.0-0.6); ABSOLUTE LYMPHOCYTES (AUTO) 1.2 10^3/uL (0.5-4.7); ABSOLUTE MONOCYTES (AUTO) 0.8 10^3/uL (0.1-1.4); ABSOLUTE NEUT (AUTO) 11.3 10^3/uL (1.7-8.2); BASOPHILS % (AUTO) 0.9 % (0-2); EOSINOPHILS % (AUTO) 0.8 % (0-6); HEMOGLOBIN 15.9 g/dL (13.5-17.0); MEAN CORPUSCULAR HEMOGLOBIN 33.9 pg (27.0-33.4); MEAN CORPUSCULAR HGB CONC 34.6 g/dL (32.0-36.0); MEAN CORPUSCULAR VOLUME 98 fl (80-97); MONOCYTES % (AUTO) 5.6 % (3-13); PLATELET COUNT 174 10^3/uL (150-450); RED CELL DISTRIBUTION WIDTH 13.9 % (11.5-14.0); SEGMENTED NEUTROPHILS % (AUTO) 83.7 % (42-78); TOTAL CELLS COUNTED % (AUTO) 100 %; WHITE BLOOD COUNT 13.5 10^3/uL (4.0-10.5)
[2020-01-22 20:55] LABS: APPEARANCE,URINE CLEAR; BILIRUBIN,URINE NEGATIVE (NEGATIVE); COLOR,URINE STRAW; GLUCOSE, URINE >=500 mg/dL (NEGATIVE); KETONES,URINE NEGATIVE (NEGATIVE); LEUKOCYTE ESTERASE,URINE NEGATIVE (NEGATIVE); NITRITE,URINE NEGATIVE (NEGATIVE); PROTEIN,URINE NEGATIVE (NEGATIVE); URINE SPECIFIC GRAVITY 1.029; UROBILINOGEN,URINE NEGATIVE mg/dL (<2.0)
[2020-01-22 21:20] LABS: ALBUMIN 4.5 g/dL (3.5-5.0); ALKALINE PHOSPHATASE 110 U/L (38-126); ANION GAP 11 (5-19); ASPARTATE AMINO TRANSFERASE 28 U/L (17-59); BILIRUBIN,DIRECT 0.2 mg/dL (0.0-0.4); BILIRUBIN,TOTAL 1.2 mg/dL (0.2-1.3); BLOOD UREA NITROGEN 8 mg/dL (7-20); CALCIUM 9.3 mg/dL (8.4-10.2); CARBON DIOXIDE 29 mmol/L (22-30); CHLORIDE 87 mmol/L (98-107); TOTAL PROTEIN 7.7 g/dL (6.3-8.2)
[2020-01-22 21:34] LABS: GLUCOSE 565 mg/dL (75-110)
[2020-01-22] MEDS ORDERED: INSULIN REG, HUMAN 100 UNIT/ML 3 ML VIAL (PYX) SUBCUT ONE (21:38)
[2020-01-22] MEDS ORDERED: VANCOMYCIN HCL INJ 1000 MG VIAL IV ONE (22:11)
[2020-01-22] MEDS ORDERED: CEFEPIME 2 GM/D5W RTU 2 GM/50 ML RTUPB IV ONE (22:31)
--- NOTE | 2020-01-23 00:04 | RADIOLOGY REPORT (SQ) ---
EXAM DESCRIPTION: CT scan of the abdomen and pelvis with IV contrast CLINICAL HISTORY: 49 years Male; possible abscess near rectum TECHNIQUE: CT of the abdomen and pelvis with intravenous contrast. All CT scans at this facility use dose modulation, iterative reconstruction, and/or weight based dosing when appropriate to reduce radiation dose to as low as reasonably achievable. This exam was performed according to our department optimization program which includes automated exposure control, adjustment of the mA and/or kv according to patient size and/or use of iterative reconstruction technique. COMPARISON: CT scan of the abdomen and pelvis with contrast April 22, 2019 FINDINGS: Lower chest: 3 mm pulmonary nodules present in the right lower lobe and is unchanged. There is an adjacent 2 mm pulmonary nodule which is also stable. No focal consolidation. Heart size is small. Abdomen: Liver and biliary tree: Diffuse fatty infiltration of the liver is noted. Gallbladder is unremarkable. Portal vein and hepatic veins are patent. Pancreas: Normal Spleen:Within normal limits Kidneys: Kidneys are normal in size, shape and position. No stones. No mass or hydronephrosis. Symmetric renal enhancement. Adrenal glands:Within normal limits Vascular structures: Minimal vascular calcifications in the aorta. No aneurysms. Mesenteric vessels are patent. Retroperitoneum: No mass or lymphadenopathy Abdominal wall: normal GI: Scattered diverticula in the colon. No evidence of acute diverticulitis. No focal bowel wall thickening. Subtle fatty infiltration into the wall of the rectal mucosa is seen suggesting chronic inflammation in the colon. At the anal verge in the right medial buttocks is a focal fluid collection with enhancing surrounding soft tissues consistent with an abscess. On cross-sectional images this measures 3.9 x 2.7 cm. The inferior extent is not imaged. Appendix: The appendix is not clearly seen General: No free air. No free fluid Pelvis: Lymph nodes: No mass or lymphadenopathy Bladder: Unremarkable. Pelvis: No pelvic mass or adenopathy. Bones: Vacuum disc is noted at L4-5. IMPRESSION: 1. Fatty infiltration of the liver. 2. Subtle fatty infiltration into the mucosa of the sigmoid colon suggesting chronic inflammation of the colon. 3. Loculated soft tissue fluid collection in the superior medial right thigh extending to the anal verge consistent with a perirectal abscess. On cross-sectional images this measures 3.9 x 2.7 cm. The inferior extent is not included on this exam. No intra-abdominal extension. THIS REPORT CONTAINS FINDINGS THAT MAY BE CRITICAL TO PATIENT CARE: The findings were verbally discussed via telephone conference with BENJAMIN CA at 11:01 PM [employer]PERATOR CHIEF on 01/22/2020 .
[2020-01-23] MEDS ORDERED: DEXTROSE 40% GEL 15 GM TUBE PO PRN ×2 (00:17)
[2020-01-23] MEDS ORDERED: GLUCAGON,HUMAN RECOMB 1 MG INJ IM PRN (00:17)
[2020-01-23] MEDS ORDERED: DEXTROSE 50%-WATER 25 GM/50 ML DISP.SYRIN IV PRN ×2 (00:17)
--- NOTE | 2020-01-23 00:25 | PDOC H&P ---
History of Present Illness Admission Date/PCP: [facility] Patient complains of: Perianal pain History of Present Illness: CHIN KAPOOR is a 49 year old male with recently diagnosed diabetes who presents with several day history of increasing pain in the right perianal region. Patient has had some subjective fever. No drainage. Patient notes th at the pain is worsened with bowel movement and sitting. Patient does smoke and he alcohol drinks every day. He has had a buttock cyst removed well away from the anus in the past. No anal surgery. Patient has had a TIA in the past with no residual consequence. He is on no anticoagulation at this time. Patient drank a large bottle of liquid in the emergency room while awaiting evaluation tonight. Past Medical History Cardiac Medical History: Reports: Hypertension Neurological History Note: History of TIA of unclear etiology. Past Surgical History Past Surgical History: Reports: Appendectomy, Orthopedic Surgery - L acl ,, Vascular Surgery - leg stent Social History Lives with: Family Smoking Status: Current Some Day Smoker Frequency of Alcohol Use: Heavy Hx Recreational Drug Use: No Hx Prescription Drug Abuse: No Family History Family History: Reviewed & Not Pertinent Parental Family History Reviewed: Yes - Diabetes and cancer Children Family History Reviewed: Yes Sibling(s) Family History Reviewed.: Yes Medication/Allergy Home Medications: Benzonatate [Tessalon Perle 100 mg Capsule] 100 mg PO Q8HP PRN #15 cap 09/12/18 Clindamycin HCl [Cleocin 300 mg Capsule] 300 mg PO TID #30 capsule 09/12/18 Ibuprofen [Motrin 600 Mg Tablet] 600 mg PO TID #15 tablet 04/22/19 Ondansetron [Zofran Odt 4 mg Tablet] 1 tab PO Q8H PRN #15 tab.rapdis 04/22/19 Polyethylene Glycol 3350 [Miralax] 17 gm PO DAILY #238 gm 04/22/19 Hydrocodone Bit/Acetaminophen [Hydrocodon-Acetaminophen 5-325] 1 each PO Q6H #10 tablet 09/22/19 Lisinopril [Prinivil] 20 mg PO DAILY #30 tablet 09/22/19 Methocarbamol [Robaxin-750] 750 mg PO QID PRN #20 tablet 12/22/19 Ondansetron [Zofran Odt 4 mg Tablet] 1 - 2 tab PO Q4H PRN #15 tab.rapdis 12/22/19 Allergies/Adverse Reactions: Penicillins Allergy (Verified 09/22/19 11:02) Review of Systems All systems: reviewed and no additional remarkable complaints except as stated Constitutional: PRESENT: fever(s) Gastrointestinal: PRESENT: other - History of diverticulitis but no symptoms at this time. Physical Exam Vital Signs: Temp Pulse Resp BP Pulse Ox 97.9 F 114 H 18 159/92 H 97 01/22/20 19:53 01/22/20 19:53 01/22/20 19:53 01/22/20 19:53 01/22/20 19:53 Intake & Output 01/21/20 01/22/20 01/23/20 06:59 06:59 06:59 Intake Total 1000 Balance 1000 Weight 110.1 kg General appearance: PRESENT: no acute distress, cooperative Eye exam: PRESENT: conjunctiva pink Neck exam: PRESENT: other - Supple with no tenderness. Respiratory exam: PRESENT: clear to auscultation juliet Cardiovascular exam: PRESENT: RRR GI/Abdominal exam: PRESENT: other - Soft, nondistended, nontender to palpation. Rectal exam: PRESENT: other - Erythema along the right perianal region diffusely with marked tenderness with a sense of fluctuance. Marked right perianal tender ness. Neurological exam: PRESENT: alert, awake Psychiatric exam: PRESENT: appropriate affect Skin exam: PRESENT: warm Results Laboratory Results: 01/22/20 20:21 01/22/20 20:21 01/22/20 01/22/20 01/22/20 19:56 20:21 20:21 WBC 13.5 H RBC 4.70 Hgb 15.9 Hct 46.0 MCV 98 H MCH 33.9 H MCHC 34.6 RDW 13.9 Plt Count 174 Seg Neutrophils % 83.7 H Sodium 127.3 L Potassium 4.0 Chloride 87 L Carbon Dioxide 29 Anion Gap 11 BUN 8 Creatinine 0.90 Est GFR ( Amer) > 60 Glucose 565 H* Calcium 9.3 Total Bilirubin 1.2 AST 28 Alkaline Phosphatase 110 Total Protein 7.7 Albumin 4.5 Urine Color STRAW Urine Appearance CLEAR Urine pH 7.0 Ur Specific [place] 1.029 Urine Protein NEGATIVE Urine Glucose (UA) >=500 H Urine Ketones NEGATIVE Urine Blood NEGATIVE Urine Nitrite NEGATIVE Ur Leukocyte Esterase NEGATIVE Urine WBC (Auto) 0 Assessment & Plan - Diagnosis (1) Perirectal abscess Is this a current diagnosis for this admission?: Yes Plan: We will admit the patient place him on IV antibiotics with plans for incision and drainage in the morning.
[2020-01-23] MEDS: LEVOFLOXACIN 500 MG/D5W RTU 500 MG/100 ML RTUPB IV SCH (01:21)
[2020-01-23] MEDS: HYDROMORPHONE HCL INJ/PF 2 MG/ML AMPULE IV PRN ×4 (01:22→22:36)
[2020-01-23] MEDS: METRONIDAZOLE 500 MG/NS RTU 500 MG/100 ML RTUPB IV SCH ×4 (02:25→17:50)
[2020-01-23] MEDS: NORMAL SALINE 1000 ML 1,000 ML IV PRN ×2 (04:26→16:45)
[2020-01-23] MEDS: KETOROLAC TROMETHAMINE INJ/PF 30 MG/1 ML SDV IV PRN ×2 (04:26→20:50)
[2020-01-23] MEDS: INSULIN REG, HUMAN 100 UNIT/ML 3 ML VIAL (PYX) SUBCUT SCH ×4 (06:08→21:58)
[2020-01-23] MEDS ORDERED: BUPIVACAINE HCL 0.25 % INJ/PF (2.5 MG/1 ML) 30 ML VIAL ONE (08:38)
[2020-01-23] MEDS ORDERED: LIDOCAINE 2% JELLY 30 ML TUBE ONE (08:39)
[2020-01-23] MEDS ORDERED: MIDAZOLAM 2 MG/2 ML INJ ONE (09:01)
[2020-01-23] MEDS ORDERED: ONDANSETRON HCL INJ/PF 4 MG/2 ML SDV ONE (09:01)
[2020-01-23] MEDS ORDERED: LIDOCAINE 2% INJ-PF (20 MG/ML) 10 ML AMPUL ONE (09:01)
[2020-01-23] MEDS ORDERED: FENTANYL CITRATE INJ/PF 100 MCG/2 ML AMPUL ONE (09:01)
[2020-01-23] MEDS ORDERED: PROPOFOL INJ 200 MG/20 ML VIAL IV ONE (09:02)
[2020-01-23] MEDS ORDERED: HYDROMORPHONE HCL INJ/PF 2 MG/ML AMPULE ONE (09:57)
[2020-01-23] MEDS ORDERED: PROMETHAZINE HCL INJ 25 MG/1 ML VIAL IV PRN ×2 (10:08)
[2020-01-23] MEDS ORDERED: OXYCODONE-ACETAMINOPHEN 5-325 MG TABLET PO PRN ×2 (10:08)
[2020-01-23] MEDS ORDERED: DIPHENHYDRAMINE HCL 50 MG/ML VIAL IV PRN (10:08)
[2020-01-23] MEDS ORDERED: ONDANSETRON HCL INJ/PF 4 MG/2 ML SDV IV PRN (10:08)
[2020-01-23] MEDS ORDERED: MEPERIDINE HCL/PF INJ 25 MG/1 ML DISP.SYRIN IV PRN (10:08)
[2020-01-23] MEDS ORDERED: FENTANYL CITRATE INJ/PF 100 MCG/2 ML AMPUL IV PRN ×3 (10:08)
[2020-01-23] MEDS ORDERED: HYDROMORPHONE HCL INJ/PF 2 MG/ML AMPULE IV ONE (10:10)
[2020-01-23] MEDS ORDERED: IPRATROPIUM/ALBUTEROL 0.5-2.5 MG/3 ML AMPUL NEB ONE (10:12)
--- NOTE | 2020-01-23 10:31 | Operative Report ---
Operative Report DATE OF SURGERY: 01/23/20 PREOPERATIVE DIAGNOSIS: 1. Acute right perianal abscess. 2. Smoking abuse. 3. Alcohol abuse. 4. Uncontrolled diabetes mellitus POSTOPERATIVE DIAGNOSIS: Same with. 1. Fistula in ano. 2. Internal hemorrhoids OPERATION: 1. Examination under anesthesia. 2. Drainage of right perianal abscess with packing. 3. Placement of draining seton SURGEON: CRUZ KAY ANESTHESIA: GA TISSUE REMOVED OR ALTERED: Pus from right buttock cheek COMPLICATIONS: None ESTIMATED BLOOD LOSS: 10 cc INTRAOPERATIVE FINDINGS: See below PROCEDURE: Patient was taken the preop holding area to the main operating room where general anesthesia was induced with the patient in the gurney. He was then flipped in the prone jackknife position on the operating table, ensuring the airway was stable. The buttock cheeks were exposed, hair clipped, then taped widely for exposure the anus. Surgical plan surgical timeout were conducted. Examination of the perianal area was grossly unremarkable except for thickened area at approximately right lateral position in relation to the patient the anatomic position. I dilated up the anal canal to accept to adult fingers. The bullet anoscope was inserted and the findings were significant for internal hemorrhoids primarily at the dentate line on the patient's right side. There was a very small inflammatory site in the anal canal just filled to the dentate line. There was some purulent discharge. I now made a radial incision over the patient's perianal tissue in the right lateral position. We immediately got approximately 20 cc of pus which was sent for Gram stain culture and sensitivity. The cavity was irrigated out thoroughly. The cavity appeared to involve the neural aspect of the external sphincter. Using a variety of probes, the cavity tracked posteriorly and towards midline, following Dougie goodsal's rule. I gingerly insinuated a Laine clamp through this tract, and had an open into the anal canal at the site previously identified just about in the midline position where there was some purulent discharge. I felt that this was the fistula tract and therefore placed a lizet read of vascular loop through the tract, through the anal canal and tied in a knot loosely. We placed approximately a foot of quarter iodoform packing into the abscess cavity. At this point felt the operation was complete. Patient tolerated procedure well, was rotated back into the supine position on the gurney, and extubated. He was taken to recovery room in stable condition. Synoptic report: Intraoperative findings of right perianal abscess, with pus, consistent with preoperative examination and CT scan findings. Abscess effectively drained, fistula identified and seton placed.
[2020-01-23] MEDS ORDERED: NICOTINE 14 MG/24 HR PATCH.TD24 TD PRN (14:13)
[2020-01-23 15:50] LABS: ANION GAP 8 (5-19); BLOOD UREA NITROGEN 10 mg/dL (7-20); CALCIUM 7.8 mg/dL (8.4-10.2); CARBON DIOXIDE 30 mmol/L (22-30); CHLORIDE 97 mmol/L (98-107); GLUCOSE 178 mg/dL (75-110); POTASSIUM 3.8 mmol/L (3.6-5.0)
--- NOTE | 2020-01-23 16:54 | PDOC CONSULTATION ---
Consultation Consult Date: 01/23/20 Attending physician:: CRUZ ARBOLEDA Provider Consulted: ISH OSPINA Consult reason:: Management of newly diagnosed type 2 diabetes mellitus History of Present Illness Admission Date/PCP: 01/23/20 00:18 [facility] Patient complains of: Buttock pain as well as abscess History of Present Illness: CHIN KAPOOR is a 49 year old male Patient presents to the emergency room with a right perianal abscess. He was found to have a blood sugar of 535. Patient denies any known history of diabete s. He said he was in the emergency room earlier this year in December and at that time his blood sugar was found to be 267. He was advised to follow-up with [facility] and in fact he said his appointment was on although he got canceled because of the snow. She really had not been placed on any hypoglycemic agent but then started with a small abscess which gradually enlarged prompting his visit to the ER. He has been seen by surgery. He was found to have a fistula in ano, and he had a drainage of right perianal abscess with packing done He was given 15 units of insulin, NovoLog in the ER on initial presentation. His blood sugar did drop down to 178. He was also initially hyponatremic with a blood sugar of 565 hospitalist consult has been requested to help in the ma nagement of his blood sugar. Past Medical History Cardiac Medical History: Reports: Hypertension Endocrine Medical History: Reports: None Renal/ Medical History: Reports: None Malignancy Medical History: Reports: None GI Medical History: Reports: None Psychiatric Medical History: Reports: Tobacco Dependency Past Surgical History Past Surgical History: Reports: Appendectomy, Orthopedic Surgery - L acl ,, Vascular Surgery - leg stent Social History Information Source: Patient Lives with: Family Smoking Status: Current Every Day Smoker Frequency of Alcohol Use: Heavy Amount of Alcoholic Beverages Per Day: Unquantified Hx Recreational Drug Use: No Drugs: None Hx Prescription Drug Abuse: No - Advance Directive Resuscitation Status: Full Code Family History Family History: Reviewed & Not Pertinent Parental Family History Reviewed: Yes Children Family History Reviewed: Yes Sibling(s) Family History Reviewed.: Unknown Medication/Allergy Home Medications: Lisinopril [Prinivil] 20 mg PO DAILY #30 tablet 09/22/19 Methocarbamol [Robaxin-750] 750 mg PO QID PRN #20 tablet 12/22/19 Aspirin [Ecotrin 81 mg EC Tablet] 81 mg PO DAILY 01/23/20 Diphenhydramine HCl [Unisom] 50 mg PO QHS 01/23/20 Allergies/Adverse Reactions: Penicillins Allergy (Verified 09/22/19 11:02) Review of Systems Constitutional: ABSENT: chills, fever(s), headache(s), weight gain, weight loss Eyes: ABSENT: visual disturbances Ears: ABSENT: hearing changes Cardiovascular: ABSENT: chest pain, dyspnea on exertion, edema Respiratory: ABSENT: cough, dyspnea Gastrointestinal: ABSENT: hematemesis, hematochezia, nausea, vomiting Genitourinary: ABSENT: difficulty urinating Integumentary: PRESENT: other - rectal abscess Neurological: ABSENT: abnormal gait, abnormal speech, confusion, dizziness, focal weakness, syncope Endocrine: PRESENT: polydipsia, polyuria Physical Exam Vital Signs: Temp Pulse Resp BP Pulse Ox 98 F 86 16 115/71 94 01/23/20 13:30 01/23/20 13:30 01/23/20 13:30 01/23/20 13:30 01/23/20 13:30 Intake & Output 01/22/20 01/23/20 01/24/20 06:59 06:59 06:59 Intake Total 2250 1200 Output Total 10 Balance 2250 1190 Weight 110.1 kg General appearance: PRESENT: no acute distress, well-developed, well-nourished Head exam: PRESENT: atraumatic, normocephalic Eye exam: PRESENT: conjunctiva pink, EOMI, PERRLA. ABSENT: scleral icterus Ear exam: PRESENT: normal external ear exam Mouth exam: PRESENT: moist, tongue midline Neck exam: ABSENT: carotid bruit, JVD, lymphadenopathy, thyromegaly Respiratory exam: PRESENT: clear to auscultation juliet. ABSENT: rales, rhonchi, wheezes Cardiovascular exam: PRESENT: RRR. ABSENT: diastolic murmur, rubs, systolic murmur Pulses: PRESENT: normal dorsalis pedis pul Vascular exam: PRESENT: normal capillary refill GI/Abdominal exam: PRESENT: normal bowel sounds, soft. ABSENT: distended, guarding, mass, organolmegaly, rebound, tenderness Rectal exam: PRESENT: deferred, other - Please see surgical evaluation Extremities exam: PRESENT: full ROM. ABSENT: calf tenderness, clubbing, pedal edema Neurological exam: PRESENT: alert, awake, oriented to person, oriented to place, oriented to time, oriented to situation, CN II-XII grossly intact. ABSENT: motor sensory deficit Psychiatric exam: PRESENT: appropriate affect, normal mood. ABSENT: homicidal ideation, suicidal ideation Skin exam: PRESENT: dry, intact, warm. ABSENT: cyanosis, rash Results Laboratory Results: 01/22/20 20:21 01/23/20 15:07 01/22/20 01/22/20 01/22/20 19:56 20:21 20:21 WBC 13.5 H RBC 4.70 Hgb 15.9 Hct 46.0 MCV 98 H MCH 33.9 H MCHC 34.6 RDW 13.9 Plt Count 174 Seg Neutrophils % 83.7 H Sodium 127.3 L Potassium 4.0 Chloride 87 L Carbon Dioxide 29 Anion Gap 11 BUN 8 Creatinine 0.90 Est GFR ( Amer) > 60 Glucose 565 H* Calcium 9.3 Total Bilirubin 1.2 AST 28 Alkaline Phosphatase 110 Total Protein 7.7 Albumin 4.5 Urine Color STRAW Urine Appearance CLEAR Urine pH 7.0 Ur Specific [place] 1.029 Urine Protein NEGATIVE Urine Glucose (UA) >=500 H Urine Ketones NEGATIVE Urine Blood NEGATIVE Urine Nitrite NEGATIVE Ur Leukocyte Esterase NEGATIVE Urine WBC (Auto) 0 01/23/20 15:07 WBC RBC Hgb Hct MCV MCH MCHC RDW Plt Count Seg Neutrophils % Sodium 135.1 L Potassium 3.8 Chloride 97 L Carbon Dioxide 30 Anion Gap 8 BUN 10 Creatinine 0.77 Est GFR ( Amer) > 60 Glucose 178 H Calcium 7.8 L Total Bilirubin AST Alkaline Phosphatase Total Protein Albumin Urine Color Urine Appearance Urine pH Ur Specific [place] Urine Protein Urine Glucose (UA) Urine Ketones Urine Blood Urine Nitrite Ur Leukocyte Esterase Urine WBC (Auto) Impressions: Abdomen/Pelvis CT 01/22/20 22:57 IMPRESSION: 1. Fatty infiltration of the liver. 2. Subtle fatty infiltration into the mucosa of the sigmoid colon suggesting chronic inflammation of the colon. 3. Loculated soft tissue fluid collection in the superior medial right thigh extending to the anal verge consistent with a perirectal abscess. On cross-sectional images this measures 3.9 x 2.7 cm. The inferior extent is not included on this exam. No intra-abdominal extension. THIS REPORT CONTAINS FINDINGS THAT MAY BE CRITICAL TO PATIENT CARE: The findings were verbally discussed via telephone conference with BENJAMIN CA at 11:01 PM RAPID EXTRACTOR OPERATOR on 01/22/2020 . Assessment and Plan - Diagnosis (1) Type 2 diabetes mellitus Qualifiers: Diabetes mellitus surgery nurse insulin use: without surgery nurse use Is this a current diagnosis for this admission?: Yes Plan: This is newly discovered as of December 2019. He presents this admission with a blood sugar of 535. He is not acidotic. We will continue with sliding scale insulin. I have also placed him on small dose of Lantus 5 units twice daily. He will need further adjustments of his insulin dose. He may well be able to be managed on oral hypoglycemic agent. Will check hemoglobin A1c. Diabetic education has also been ordered for him (2) Hypertension Is this a current diagnosis for this admission?: Yes Plan: Gives a prior history of hypertension. Patient is on lisinopril and this should be continued (3) Perirectal abscess Is this a current diagnosis for this admission?: Yes Plan: This likely is related to his uncontrolled hyperglycemia. He has been taken to the OR for I&D by Dr. Arboleda. Further management as per surgery - Plan Summary Summary: Thank you for the consult will follow along with you while in hospital - Time Time Spent with patient: 25-34 minutes Medications reviewed and adjusted accordingly: Yes Anticipated discharge: Home Within: within 48 hours - Inpatient Certification Based on my medical assessment, after consideration of the patient's comorbidities, presenting symptoms, or acuity I expect that the services needed warrant INPATIENT care.: Yes Medical Necessity: Significant Comorbidiites Make Outpatient Treatment Too Risky
[2020-01-23] MEDS ORDERED: INSULIN GLARGINE,HUM.REC.ANLOG 1,000 UNIT/10 ML VIAL (PYX) SUBCUT ONE (21:41)
[2020-01-23] MEDS: INSULIN GLARGINE,HUM.REC.ANLOG 1,000 UNIT/10 ML VIAL SUBCUT SCH (21:57)
[2020-01-24] MEDS: LEVOFLOXACIN 500 MG/D5W RTU 500 MG/100 ML RTUPB IV SCH ×2 (00:16→23:32)
[2020-01-24] MEDS: METRONIDAZOLE 500 MG/NS RTU 500 MG/100 ML RTUPB IV SCH ×5 (00:16→23:32)
[2020-01-24] MEDS: NORMAL SALINE 1000 ML 1,000 ML IV PRN (00:16)
[2020-01-24] MEDS: HYDROMORPHONE HCL INJ/PF 2 MG/ML AMPULE IV PRN ×2 (04:26→10:11)
[2020-01-24] MEDS: KETOROLAC TROMETHAMINE INJ/PF 30 MG/1 ML SDV IV PRN ×2 (05:29→20:41)
[2020-01-24] MEDS: INSULIN REG, HUMAN 100 UNIT/ML 3 ML VIAL (PYX) SUBCUT SCH ×4 (10:03→21:45)
[2020-01-24] MEDS: INSULIN GLARGINE,HUM.REC.ANLOG 1,000 UNIT/10 ML VIAL SUBCUT SCH ×2 (10:05→21:45)
[2020-01-24] MEDS ORDERED: NICOTINE 14 MG/24 HR PATCH.TD24 TD PRN (11:00)
[2020-01-24] MEDS ORDERED: ZOLPIDEM TARTRATE 5 MG TABLET PO PRN (11:40)
[2020-01-24] MEDS ORDERED: (PENDING PHARMACY ID) (Lisinopril [Prinivil] 20 MG) PO SCH (11:45)
[2020-01-24 12:02] LABS: ANION GAP 10 (5-19); BLOOD UREA NITROGEN 11 mg/dL (7-20); CARBON DIOXIDE 28 mmol/L (22-30); CHLORIDE 96 mmol/L (98-107); GLUCOSE 195 mg/dL (75-110); POTASSIUM 3.4 mmol/L (3.6-5.0)
--- NOTE | 2020-01-24 15:15 | PDOC PROGRESS REPORT ---
Subjective Progress Note for:: 01/24/20 Reason For Visit: PERITECTAL ABSCESS, UNCONTROLLED DIABETES Patient feels a little better. Packing still in. Blood sugars still in the mid 200s. Physical Exam Vital Signs: Temp Pulse Resp BP Pulse Ox 97.2 F 84 20 144/96 H 90 L 01/24/20 11:52 01/24/20 11:52 01/24/20 11:52 01/24/20 11:52 01/24/20 11:52 Intake & Output 01/23/20 01/24/20 01/25/20 06:59 06:59 06:59 Intake Total 2250 3492 1340 Output Total 1610 Balance 2250 1882 1340 Weight 110.1 kg 114.8 kg General appearance: PRESENT: no acute distress Rectal exam: PRESENT: other - Patient rolled the right lateral cubitus position. Packing removed. No cellulitis or foul smell or residual drainage. Seton in place. Results Laboratory Results: 01/22/20 20:21 01/24/20 04:55 01/23/20 01/24/20 15:07 04:55 Sodium 135.1 L 133.5 L Potassium 3.8 3.4 L Chloride 97 L 96 L Carbon Dioxide 30 28 Anion Gap 8 10 BUN 10 11 Creatinine 0.77 0.72 Est GFR ( Amer) > 60 > 60 Glucose 178 H 195 H Calcium 7.8 L 8.0 L Impressions: Abdomen/Pelvis CT 01/22/20 22:57 IMPRESSION: 1. Fatty infiltration of the liver. 2. Subtle fatty infiltration into the mucosa of the sigmoid colon suggesting chronic inflammation of the colon. 3. Loculated soft tissue fluid collection in the superior medial right thigh extending to the anal verge consistent with a perirectal abscess. On cross-sectional images this measures 3.9 x 2.7 cm. The inferior extent is not included on this exam. No intra-abdominal extension. THIS REPORT CONTAINS FINDINGS THAT MAY BE CRITICAL TO PATIENT CARE: The findings were verbally discussed via telephone conference with BEJNAMIN CA at 11:01 PM DIRECTOR OF FIELD SERVICE on 01/22/2020 . Assessment & Plan - Diagnosis (1) Perirectal abscess Plan: Impression: Patient is 1 day status post exam under anesthesia, drainage of perianal abscess, defining fistula with seton placement doing well, packing out, clinically improved. Recommendations: 1. No indication for further packing. Indication for additional surgery. 2. Continue management of uncontrolled diabetes, intravenous antibiotics. Patient growing gram-negative rods, sensitivities pending. 3. Start showers, and sitz baths. I explained to the patient his pathoanatomy, what was done in the operating room, and the need to leave the draining seton in place. He understands additional surgery may be required in the future. - Time Time Spent: 30 to 50 Minutes
[2020-01-24] MEDS: OXYCODONE-ACETAMINOPHEN 5-325 MG TABLET PO PRN ×2 (15:47→21:37)
[2020-01-24] MEDS: LISINOPRIL 10 MG TABLET PO SCH (15:47)
[2020-01-24] MEDS ORDERED: POTASSIUM CHLORIDE 10 MEQ TABLET.ER PO ONE (16:37)
--- NOTE | 2020-01-24 16:39 | PDOC PROGRESS REPORT ---
Subjective Progress Note for:: 01/24/20 Subjective:: Patient is postop day 1 status post drainage of jatinder-anal abscess, defining fistula with drain placement. Cultures currently yielding gram-negative rods. He is currently on Flagyl as well as Levaquin Reason For Visit: PERITECTAL ABSCESS, UNCONTROLLED DIABETES Physical Exam Vital Signs: Temp Pulse Resp BP Pulse Ox 98.1 F 85 16 143/96 H 94 01/24/20 16:04 01/24/20 16:04 01/24/20 16:04 01/24/20 16:04 01/24/20 16:04 Intake & Output 01/23/20 01/24/20 01/25/20 06:59 06:59 06:59 Intake Total 2250 3492 1340 Output Total 1610 Balance 2250 1882 1340 Weight 110.1 kg 114.8 kg General appearance: PRESENT: no acute distress, obese Head exam: PRESENT: atraumatic Neck exam: PRESENT: full ROM. ABSENT: JVD Respiratory exam: PRESENT: clear to auscultation juliet, unlabored Cardiovascular exam: PRESENT: RRR, +S1, +S2 GI/Abdominal exam: PRESENT: normal bowel sounds, soft. ABSENT: tenderness Rectal exam: PRESENT: deferred, other - Please see surgical evaluation for details Musculoskeletal exam: PRESENT: ambulatory Neurological exam: PRESENT: alert, awake, oriented to person, oriented to place, oriented to time, oriented to situation. ABSENT: motor sensory deficit Psychiatric exam: PRESENT: appropriate affect Results Laboratory Results: 01/22/20 20:21 01/24/20 04:55 01/24/20 04:55 Sodium 133.5 L Potassium 3.4 L Chloride 96 L Carbon Dioxide 28 Anion Gap 10 BUN 11 Creatinine 0.72 Est GFR ( Amer) > 60 Glucose 195 H Calcium 8.0 L Impressions: Abdomen/Pelvis CT 01/22/20 22:57 IMPRESSION: 1. Fatty infiltration of the liver. 2. Subtle fatty infiltration into the mucosa of the sigmoid colon suggesting chronic inflammation of the colon. 3. Loculated soft tissue fluid collection in the superior medial right thigh extending to the anal verge consistent with a perirectal abscess. On cross-sectional images this measures 3.9 x 2.7 cm. The inferior extent is not included on this exam. No intra-abdominal extension. THIS REPORT CONTAINS FINDINGS THAT MAY BE CRITICAL TO PATIENT CARE: The findings were verbally discussed via telephone conference with BENJAMIN CA at 11:01 PM GLASS BEVELER on 01/22/2020 . Assessment and Plan - Diagnosis (1) Type 2 diabetes mellitus Qualifiers: Diabetes mellitus penitentiary insulin use: without ferry terminal agent use Is this a current diagnosis for this admission?: Yes Plan: This is newly discovered as of December 2019. He presents this admission with a blood sugar of 535. He is not acidotic. We will continue with sliding scale insulin. I have also placed him on small dose of Lantus 5 units twice daily. He will need further adjustments of his insulin dose. He may well be able to be managed on oral hypoglycemic agent. Will check hemoglobin A1c. Diabetic education has also been ordered for him 01/25 I increase his Lantus to 8 units twice daily. He continues on sliding scale insulin. Hemoglobin A1c is 9. Once his infection is cleared he definitely will need hopefully down titrating of his insulin. (2) Hypertension Is this a current diagnosis for this admission?: Yes Plan: Gives a prior history of hypertension. Continue lisinopril and adjust as needed (3) Perirectal abscess Is this a current diagnosis for this admission?: Yes Plan: Likely related to his uncontrolled hyperglycemia - Plan Summary Summary: Thank you for the consult will continue to follow along with you while in hospital
[2020-01-24] MEDS: DOCUSATE SODIUM 100 MG CAPSULE PO SCH (17:27)
[2020-01-24 18:22] LABS: ANION GAP 7 (5-19); BLOOD UREA NITROGEN 11 mg/dL (7-20); CALCIUM 8.2 mg/dL (8.4-10.2); CARBON DIOXIDE 28 mmol/L (22-30); CHLORIDE 99 mmol/L (98-107); GLUCOSE 238 mg/dL (75-110); POTASSIUM 3.7 mmol/L (3.6-5.0)
[2020-01-24] MEDS ORDERED: INSULIN GLARGINE,HUM.REC.ANLOG 1,000 UNIT/10 ML VIAL (PYX) SUBCUT ONE (21:35)
[2020-01-25] MEDS: OXYCODONE-ACETAMINOPHEN 5-325 MG TABLET PO PRN ×2 (04:21→11:25)
[2020-01-25 06:06] LABS: ABSOLUTE BASOPHILS # (AUTO) 0.1 10^3/uL (0.0-0.2); ABSOLUTE EOSINOPHILS # (AUTO) 0.3 10^3/uL (0.0-0.6); ABSOLUTE LYMPHOCYTES (AUTO) 1.3 10^3/uL (0.5-4.7); ABSOLUTE MONOCYTES (AUTO) 0.6 10^3/uL (0.1-1.4); ABSOLUTE NEUT (AUTO) 5.1 10^3/uL (1.7-8.2); BASOPHILS % (AUTO) 0.9 % (0-2); EOSINOPHILS % (AUTO) 4.2 % (0-6); HEMATOCRIT 36.5 % (37.9-51.0); LYMPHOCYTES % (AUTO) 17.4 % (13-45); MEAN CORPUSCULAR HEMOGLOBIN 35.1 pg (27.0-33.4); MEAN CORPUSCULAR HGB CONC 36.3 g/dL (32.0-36.0); MEAN CORPUSCULAR VOLUME 97 fl (80-97); MONOCYTES % (AUTO) 7.7 % (3-13); PLATELET COUNT 140 10^3/uL (150-450); RED BLOOD COUNT 3.77 10^6/uL (4.35-5.55); SEGMENTED NEUTROPHILS % (AUTO) 69.8 % (42-78); TOTAL CELLS COUNTED % (AUTO) 100 %; WHITE BLOOD COUNT 7.3 10^3/uL (4.0-10.5)
[2020-01-25 06:09] LABS: HEMOGLOBIN 13.2 g/dL (13.5-17.0)
[2020-01-25] MEDS: METRONIDAZOLE 500 MG/NS RTU 500 MG/100 ML RTUPB IV SCH ×2 (06:37→11:51)
--- NOTE | 2020-01-25 08:49 | PDOC PROGRESS REPORT ---
Subjective Progress Note for:: 01/25/20 Subjective:: feels better Reason For Visit: PERITECTAL ABSCESS, UNCONTROLLED DIABETES Physical Exam Vital Signs: Temp Pulse Resp BP Pulse Ox 97.4 F 68 17 135/75 H 98 01/25/20 07:32 01/25/20 07:32 01/25/20 07:32 01/25/20 07:32 01/25/20 07:32 Intake & Output 01/24/20 01/25/20 01/26/20 06:59 06:59 06:59 Intake Total 3492 4253 Output Total 1610 Balance 1882 4253 Weight 114.8 kg 116.7 kg General appearance: PRESENT: no acute distress Head exam: PRESENT: normocephalic Eye exam: PRESENT: EOMI Ear exam: PRESENT: normal external ear exam Mouth exam: PRESENT: moist Neck exam: PRESENT: full ROM Respiratory exam: PRESENT: clear to auscultation juliet Cardiovascular exam: PRESENT: RRR Pulses: PRESENT: normal femoral pulses, normal dorsalis pedis pul Vascular exam: PRESENT: normal capillary refill Breast: PRESENT: Normal GI/Abdominal exam: PRESENT: soft Rectal exam: PRESENT: other - seton in place, no swelling or cellulitis Musculoskeletal exam: PRESENT: ambulatory Neurological exam: PRESENT: alert, awake, oriented to person, oriented to place, oriented to time Psychiatric exam: PRESENT: appropriate affect Skin exam: PRESENT: dry Results Laboratory Results: 01/25/20 04:53 01/24/20 17:56 01/24/20 01/24/20 01/25/20 04:55 17:56 04:53 WBC 7.3 RBC 3.77 L Hgb 13.2 L D Hct 36.5 L MCV 97 MCH 35.1 H MCHC 36.3 H RDW 14.0 Plt Count 140 L Seg Neutrophils % 69.8 Sodium 133.5 L 133.7 L Potassium 3.4 L 3.7 Chloride 96 L 99 Carbon Dioxide 28 28 Anion Gap 10 7 BUN 11 11 Creatinine 0.72 0.90 Est GFR ( Amer) > 60 > 60 Glucose 195 H 238 H Calcium 8.0 L 8.2 L Impressions: Abdomen/Pelvis CT 01/22/20 22:57 IMPRESSION: 1. Fatty infiltration of the liver. 2. Subtle fatty infiltration into the mucosa of the sigmoid colon suggesting chronic inflammation of the colon. 3. Loculated soft tissue fluid collection in the superior medial right thigh extending to the anal verge consistent with a perirectal abscess. On cross-sectional images this measures 3.9 x 2.7 cm. The inferior extent is not included on this exam. No intra-abdominal extension. THIS REPORT CONTAINS FINDINGS THAT MAY BE CRITICAL TO PATIENT CARE: The findings were verbally discussed via telephone conference with BENJAMIN CA at 11:01 PM FLOORING INSTALLER on 01/22/2020 . Assessment & Plan - Plan Summary Plan Summary: s/p i and d of perirectal absces new onset uncontrolled diabetes this am pt doing well ok from surgery standpt for discharge can f/u in surgery clinic no abx needed pt however has to be evalulated by medicine and started on a regime for diabetes control and teaching once this is completed he can be discharge.
--- NOTE | 2020-01-25 09:17 | PDOC DISCHARGE SUMMARY ---
General - Admit/Disc Date/PCP Admission Date/Primary Care Provider: 01/23/20 17:43 [facility] Discharge Date: 01/25/20 - Discharge Diagnosis Final Diagnosis: perirectal abscess, new onset diabetes - Assessment Summary: Mr. Ferguson is a 49-year-old male who was made to the hospital on 01/21/2020 with rectal pain. Diagnosis of the perirectal abscess was made and he was taken to the operating the following day for a incision and drainage under general anesthesia. He was also found to have new onset diabetes and a medical consultation was obtained while in the hospital. Subsequent to his surgery he felt much better seton was placed for a abscess with perirectal fistula. He is now doing well his pain is resolved in his rectum and he has a seton in place. He is being followed by medicine also for his new onset diabetes who will discharge him with insulin syringes and diabetic teaching. Patient also will need a follow-up with the medical physician for management of his diabetes. He will be given an appointment in surgical clinic 7 to 10 days after discharge for management of his perirectal fistula. - Additional Information Resuscitation Status: Full Code Discharge Diet: As Tolerated Discharge Activity: Activity As Tolerated - She needs a follow-up in surgical clinic in 10 to 14 days post discharge Referrals: [facility] [Provider Group] Home Medications: Lisinopril [Prinivil] 20 mg PO DAILY #30 tablet 09/22/19 Methocarbamol [Robaxin-750] 750 mg PO QID PRN #20 tablet 12/22/19 Aspirin [Ecotrin 81 mg EC Tablet] 81 mg PO DAILY 01/23/20 Diphenhydramine HCl [Unisom] 50 mg PO QHS 01/23/20 History of Present Illiness History of Present Illness: CHIN KAPOOR is a 49 year old male Physical Exam Vital Signs: Temp Pulse Resp BP Pulse Ox 97.4 F 68 17 135/75 H 98 01/25/20 07:32 01/25/20 07:32 01/25/20 07:32 01/25/20 07:32 01/25/20 07:32 Intake & Output 01/24/20 01/25/20 01/26/20 06:59 06:59 06:59 Intake Total 3492 4253 Output Total 1610 Balance 1882 4253 Weight 114.8 kg 116.7 kg Results Laboratory Results: WBC 7.3 10^3/uL (4.0-10.5) 01/25/20 04:53 RBC 3.77 10^6/uL (4.35-5.55) L 01/25/20 04:53 Hgb 13.2 g/dL (13.5-17.0) L D 01/25/20 04:53 Hct 36.5 % (37.9-51.0) L 01/25/20 04:53 MCV 97 fl (80-97) 01/25/20 04:53 MCH 35.1 pg (27.0-33.4) H 01/25/20 04:53 MCHC 36.3 g/dL (32.0-36.0) H 01/25/20 04:53 RDW 14.0 % (11.5-14.0) 01/25/20 04:53 Plt Count 140 10^3/uL (150-450) L 01/25/20 04:53 Lymph % (Auto) 17.4 % (13-45) 01/25/20 04:53 [place] % (Auto) 7.7 % (3-13) 01/25/20 04:53 Eos % (Auto) 4.2 % (0-6) 01/25/20 04:53 Baso % (Auto) 0.9 % (0-2) 01/25/20 04:53 Absolute Neuts (auto) 5.1 10^3/uL (1.7-8.2) 01/25/20 04:53 Absolute Lymphs (auto) 1.3 10^3/uL (0.5-4.7) 01/25/20 04:53 Absolute Monos (auto) 0.6 10^3/uL (0.1-1.4) 01/25/20 04:53 Absolute Eos (auto) 0.3 10^3/uL (0.0-0.6) 01/25/20 04:53 Absolute Basos (auto) 0.1 10^3/uL (0.0-0.2) 01/25/20 04:53 Seg Neutrophils % 69.8 % (42-78) 01/25/20 04:53 Sodium 133.7 mmol/L (137-145) L 01/24/20 17:56 Potassium 3.7 mmol/L (3.6-5.0) 01/24/20 17:56 Chloride 99 mmol/L (98-107) 01/24/20 17:56 Carbon Dioxide 28 mmol/L (22-30) 01/24/20 17:56 Anion Gap 7 (5-19) 01/24/20 17:56 BUN 11 mg/dL (7-20) 01/24/20 17:56 Creatinine 0.90 mg/dL (0.52-1.25) 01/24/20 17:56 Est GFR ( Amer) > 60 (>60) 01/24/20 17:56 Est GFR (MDRD) Non-Af > 60 (>60) 01/24/20 17:56 Glucose 238 mg/dL (75-110) H 01/24/20 17:56 POC Glucose 162 mg/dL (70-110) H 01/25/20 06:43 Hemoglobin A1c % 9.9 % (4.7-6.0) H 01/24/20 04:55 Calcium 8.2 mg/dL (8.4-10.2) L 01/24/20 17:56 Total Bilirubin 1.2 mg/dL (0.2-1.3) 01/22/20 20:21 Direct Bilirubin 0.2 mg/dL (0.0-0.4) 01/22/20 20:21 Neonat Total Bilirubin Not Reportable 01/22/20 20:21 Neonat Direct Bilirubin Not Reportable 01/22/20 20:21 Neonat Indirect Bili Not Reportable 01/22/20 20:21 AST 28 U/L (17-59) 01/22/20 20:21 ALT 47 U/L (<50) 01/22/20 20:21 Alkaline Phosphatase 110 U/L (38-126) 01/22/20 20:21 Total Protein 7.7 g/dL (6.3-8.2) 01/22/20 20:21 Albumin 4.5 g/dL (3.5-5.0) 01/22/20 20:21 Urine Color STRAW 01/22/20 19:56 Urine Appearance CLEAR 01/22/20 19:56 Urine pH 7.0 (5.0-9.0) 01/22/20 19:56 Ur Specific [place] 1.029 01/22/20 19:56 Urine Protein NEGATIVE mg/dL (NEGATIVE) 01/22/20 19:56 Urine Glucose (UA) >=500 mg/dL (NEGATIVE) H 01/22/20 19:56 Urine Ketones NEGATIVE mg/dL (NEGATIVE) 01/22/20 19:56 Urine Blood NEGATIVE (NEGATIVE) 01/22/20 19:56 Urine Nitrite NEGATIVE (NEGATIVE) 01/22/20 19:56 Urine Bilirubin NEGATIVE (NEGATIVE) 01/22/20 19:56 Urine Urobilinogen NEGATIVE mg/dL (<2.0) 01/22/20 19:56 Ur Leukocyte Esterase NEGATIVE (NEGATIVE) 01/22/20 19:56 Urine WBC (Auto) 0 /HPF 01/22/20 19:56 Urine Ascorbic Acid NEGATIVE (NEGATIVE) 01/22/20 19:56 Impressions: Abdomen/Pelvis CT 01/22/20 22:57 IMPRESSION: 1. Fatty infiltration of the liver. 2. Subtle fatty infiltration into the mucosa of the sigmoid colon suggesting chronic inflammation of the colon. 3. Loculated soft tissue fluid collection in the superior medial right thigh extending to the anal verge consistent with a perirectal abscess. On cross-sectional images this measures 3.9 x 2.7 cm. The inferior extent is not included on this exam. No intra-abdominal extension. THIS REPORT CONTAINS FINDINGS THAT MAY BE CRITICAL TO PATIENT CARE: The findings were verbally discussed via telephone conference with BENJAMIN CA at 11:01 PM MANAGER SYSTEM on 01/22/2020 .
[2020-01-25] MEDS: INSULIN GLARGINE,HUM.REC.ANLOG 1,000 UNIT/10 ML VIAL SUBCUT SCH (09:24)
[2020-01-25] MEDS: LISINOPRIL 10 MG TABLET PO SCH (09:26)
[2020-01-25] MEDS: INSULIN REG, HUMAN 100 UNIT/ML 3 ML VIAL (PYX) SUBCUT SCH ×2 (09:26→11:47)
[2020-01-25] MEDS: DOCUSATE SODIUM 100 MG CAPSULE PO SCH (09:26)
[2020-01-25] MEDS ORDERED: ASPIRIN 81 MG TABLET, ENT COATED PO SCH (10:00)
--- NOTE | 2020-01-25 11:21 | PDOC PROGRESS REPORT ---
Subjective Progress Note for:: 01/25/20 Subjective:: Patient is planned for discharge today by surgicalist. Patient states that he is feeling well. Denies any fever or chills. Patient acknowledges that he has never been diagnosed with diabetes before. I have discussed in length with patients regarding his diabetes as well as his need for insulin, his hemoglobin A1c. Patient fully understands. Reason For Visit: PERITECTAL ABSCESS, UNCONTROLLED DIABETES Physical Exam Vital Signs: Temp Pulse Resp BP Pulse Ox 97.4 F 68 17 134/87 H 98 01/25/20 10:29 01/25/20 10:29 01/25/20 10:29 01/25/20 10:29 01/25/20 10:29 Intake & Output 01/24/20 01/25/20 01/26/20 06:59 06:59 06:59 Intake Total 3492 4253 100 Output Total 1610 Balance 1882 4253 100 Weight 114.8 kg 116.7 kg 116.7 kg General appearance: PRESENT: no acute distress, cooperative Neck exam: ABSENT: JVD Respiratory exam: PRESENT: clear to auscultation juliet, unlabored. ABSENT: tachypnea, wheezes Cardiovascular exam: PRESENT: RRR, +S1, +S2. ABSENT: tachycardia GI/Abdominal exam: PRESENT: soft. ABSENT: rebound, rigid, tenderness Neurological exam: PRESENT: alert, awake, oriented to person, oriented to place, oriented to time, oriented to situation Results Laboratory Results: 01/25/20 04:53 01/24/20 17:56 01/24/20 01/24/20 01/25/20 04:55 17:56 04:53 WBC 7.3 RBC 3.77 L Hgb 13.2 L D Hct 36.5 L MCV 97 MCH 35.1 H MCHC 36.3 H RDW 14.0 Plt Count 140 L Seg Neutrophils % 69.8 Sodium 133.5 L 133.7 L Potassium 3.4 L 3.7 Chloride 96 L 99 Carbon Dioxide 28 28 Anion Gap 10 7 BUN 11 11 Creatinine 0.72 0.90 Est GFR ( Amer) > 60 > 60 Glucose 195 H 238 H Calcium 8.0 L 8.2 L Impressions: Abdomen/Pelvis CT 01/22/20 22:57 IMPRESSION: 1. Fatty infiltration of the liver. 2. Subtle fatty infiltration into the mucosa of the sigmoid colon suggesting chronic inflammation of the colon. 3. Loculated soft tissue fluid collection in the superior medial right thigh extending to the anal verge consistent with a perirectal abscess. On cross-sectional images this measures 3.9 x 2.7 cm. The inferior extent is not included on this exam. No intra-abdominal extension. THIS REPORT CONTAINS FINDINGS THAT MAY BE CRITICAL TO PATIENT CARE: The findings were verbally discussed via telephone conference with BENJAMIN CA at 11:01 PM VENDING MACHINE ASSEMBLER on 01/22/2020 . Assessment and Plan - Diagnosis (1) Type 2 diabetes mellitus Qualifiers: Diabetes mellitus terminal worker insulin use: without senior living use Is this a current diagnosis for this admission?: Yes Plan: New onset diabetes mellitus likely type II suspected given age of onset at BMI Hemoglobin A1c over 9 and is requiring initiation of insulin. Diabetes education done this morning by myself as well as glazier structural glass I have written scripts for patient to use Lantus 8 units every 12 hours and I have added metformin 500 mg twice daily given hyperglycemia I have instructed patient to keep a blood sugar log and take it with him to the [facility] for follow-up and further adjustments I have also written prescription for test strips, lancets, glucometer and insulin needles/syringes. (2) Hypertension Qualifiers: Hypertension type: essential hypertension Qualified Code(s): I10 - Essential (primary) hypertension Is this a current diagnosis for this admission?: Yes Plan: I will give patient refills for his lisinopril (3) Perirectal abscess Is this a current diagnosis for this admission?: Yes Plan: Patient is status post surgical procedure by surgicalist. Likely his uncontro lled hyperglycemia did serve as a risk factor. Rest of management as per surgery. - Time Time Spent with patient: 15-24 minutes
[2020-01-25 12:27] VITALS: BP 149/77
== END 2020-01-25 13:22 | disposition home or self-care (01) | DRG 331 ==
LOC: ER 19:49 → EH 01-23 00:18 → 4N 01-23 11:00 → OBSVTOIN 01-23 17:43
PROVIDERS: ATTEND Surgery
PROC: 0D9P00Z Drainage of Rectum with Drainage Device, Open Approach (ICD-10-PCS; 2020-01-23)
PROC: 0DQQ0ZZ Repair Anus, Open Approach (ICD-10-PCS; 2020-01-23)
PROC: 0DQP0ZZ Repair Rectum, Open Approach (ICD-10-PCS; principal; 2020-01-23 09:30)
DX: K60.5 Anorectal fistula (principal); I10 Essential (primary) hypertension; K64.8 Other hemorrhoids; F17.200 Nicotine dependence, unspecified, uncomplicated; E11.65 Type 2 diabetes mellitus with hyperglycemia; F10.10 Alcohol abuse, uncomplicated; Z88.0 Allergy status to penicillin; D72.829 Elevated white blood cell count, unspecified; Z86.73 Personal history of transient ischemic attack (TIA), and cerebral infarction without residual deficits; Z83.3 Family history of diabetes mellitus; Z90.49 Acquired absence of other specified parts of digestive tract; Z79.4 Long term (current) use of insulin
CPT/HCPCS: 36415; 74177; 80048; 80053; 81001; 82962; 83036; 85025; 87040; 87070; 87075; 87077; 87186; 87205; 902; 96361; 96365; 96366; 96367; 96375; 96376; 99284; A6266; J0692; J1170; J1815; J1885; J1956; J2250; J2270; J2405; J2704; J3010; J3370; J3490; J7030; J7620

== ENCOUNTER 2020-03-10 22:07 | Emergency (ER) | payer OTHER ==
[2020-03-10 22:39] VITALS: BP 153/97
== END 2020-03-10 23:35 | disposition left against medical advice (07) ==
LOC: ER 22:07
DX: Z53.21 Procedure and treatment not carried out due to patient leaving prior to being seen by health care provider (principal); R05 Cough

== ENCOUNTER 2020-05-18 05:29 | Day surgery (SDC) | payer OTHER ==
[2020-05-13 10:57] LABS: HEMATOCRIT 51.5 % (37.9-51.0); MEAN CORPUSCULAR HEMOGLOBIN 34.6 pg (27.0-33.4); MEAN CORPUSCULAR HGB CONC 34.9 g/dL (32.0-36.0); MEAN CORPUSCULAR VOLUME 99 fl (80-97); PLATELET COUNT 182 10^3/uL (150-450); RED CELL DISTRIBUTION WIDTH 14.5 % (11.5-14.0); WHITE BLOOD COUNT 7.7 10^3/uL (4.0-10.5)
[2020-05-13 11:21] LABS: ANION GAP 8 (5-19); BLOOD UREA NITROGEN 6 mg/dL (7-20); CALCIUM 9.6 mg/dL (8.4-10.2); CARBON DIOXIDE 30 mmol/L (22-30); CHLORIDE 96 mmol/L (98-107); GLUCOSE 115 mg/dL (75-110); POTASSIUM 4.8 mmol/L (3.6-5.0)
--- NOTE | 2020-05-13 19:00 | EKG REPORT ---
SEVERITY:- NORMAL ECG - SINUS RHYTHM : Confirmed by: Tona Sparrow MD 13-May-2020 18:59:28
[~2020-05-18 05:29] MED LIST: LACTATED RINGERS 1000 ML IV PRN; LIDOCAINE 0.5% INJ-PF (5 MG/ML) 50 ML SDV SUBCUT PRN
[2020-05-18] MEDS ORDERED: LIDOCAINE 2% JELLY 5 ML TUBE ONE (07:08)
[2020-05-18] MEDS ORDERED: LIDOCAINE 2% JELLY 30 ML TUBE ONE (07:09)
[2020-05-18] MEDS ORDERED: LIDOCAINE 2% URO-JET 5 ML KIT ONE (07:09)
[2020-05-18] MEDS ORDERED: LIDOCAINE 1%/EPINEPHRINE INJ 20 ML VIAL ONE (07:09)
[2020-05-18] MEDS ORDERED: MIDAZOLAM 2 MG/2 ML INJ ONE (07:26)
[2020-05-18] MEDS ORDERED: PROPOFOL INJ 200 MG/20 ML VIAL IV ONE ×2 (07:26→08:00)
[2020-05-18] MEDS ORDERED: FENTANYL CITRATE INJ/PF 100 MCG/2 ML AMPUL ONE (07:26)
[2020-05-18] MEDS ORDERED: KETAMINE HCL INJ 500 MG/10 ML VIAL ONE (07:43)
[2020-05-18] MEDS ORDERED: BUPIVACAINE HCL 0.25 % INJ/PF (2.5 MG/1 ML) 30 ML VIAL ONE (07:52)
[2020-05-18] MEDS ORDERED: OXYCODONE-ACETAMINOPHEN 5-325 MG TABLET PO PRN ×3 (08:14→08:27)
--- NOTE | 2020-05-18 08:14 | Discharge Summary ---
Discharge Summary (SDC) - Discharge Final Diagnosis: rectal fistula Date of Surgery: 05/18/20 Discharge Date: 05/18/20 Condition: Good Forms: ASU Anesthesia D/C Instruction, Discharge POC-Surgical Service Prescriptions: Oxycodone HCl/Acetaminophen [Percocet 5-325 mg Tablet] 1 tab PO Q6 PRN #20 tab PRN Reason: Referrals: CRUZ KAY MD [ACTIVE STAFF] - 05/26/20 8:00 am Discharge Activity: Activity As Tolerated, Other - Sitz baths after bowel movements and when needed. Report the Following to Your Physician Immediately: Increase in Pain, Fever over 101 Degrees, Unusual Bleeding, Swelling, Large Clots
[2020-05-18] MEDS: FENTANYL CITRATE INJ/PF 100 MCG/2 ML AMPUL ONE ×2 (08:19→08:22)
--- NOTE | 2020-05-18 08:21 | Operative Report ---
Operative Report DATE OF SURGERY: 05/18/20 PREOPERATIVE DIAGNOSIS: 1. 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 2. Diabetes mellitus POSTOPERATIVE DIAGNOSIS: Same with collapsed internal hemorrhoids OPERATION: 1. Exam under anesthesia. 2. Posterior lateral colotomy with partial external sphincterotomy and removal of rubber seton SURGEON: CRUZ KAY [employer] ATTENDANT: VON ANDREWS ANESTHESIA: LMAC TISSUE REMOVED OR ALTERED: None COMPLICATIONS: None ESTIMATED BLOOD LOSS: Minimal INTRAOPERATIVE FINDINGS: See below PROCEDURE: The patient was taken from the preop holding area to the main operating room where LMAC anesthesia was induced. He was placed in the prone jackknife position buttocks spread, hair shaved, and buttock taped widely. Patient required additional levels of sedation occluding ketamine. The anal area was prepped and draped with a Betadine. Surgical plan and surgical timeout were conducted. The findings were significant for an existing right posterior lateral rubber seton in position. The perianal tissue was anesthetized with quarter percent Marcaine. The anal canal was dilated up to except to adult fingers. The bullet anoscope was inserted, hemostat placed on the loop drain and the drain was brought under tension in the caudad direction. Using electrocautery, we divided the tissue bridge within the loop seton. We divided the internal sphincter, as well as a portion of the external sphincter muscle. The seton was freed, and the exposed muscle was cauterized. Bleeding was minimal. We examined the rest of the perianal tissue and other than small collapsed internal hemorrhoids, were satisfied there was no other pathology. Inspected the fistulotomy tract including the partial sphincterotomy and there was no mechanical bleeding. Sponge and needle counts are correct. Cane gel was placed in the recesses of the wound. Patient tolerated the procedure well, rotated in the position, taken to the recovery room in stable condition. The physician broker assistant, Ms. Dale, provided assistance during this case by retracting tissue, instillation of local anesthesia and closure of skin incisions.
[2020-05-18] MEDS ORDERED: DIPHENHYDRAMINE HCL 50 MG/ML VIAL IV PRN (08:27)
[2020-05-18] MEDS ORDERED: FENTANYL CITRATE INJ/PF 100 MCG/2 ML AMPUL IV PRN ×3 (08:27)
[2020-05-18] MEDS ORDERED: MEPERIDINE HCL/PF INJ 25 MG/1 ML DISP.SYRIN IV PRN (08:27)
[2020-05-18] MEDS ORDERED: PROMETHAZINE HCL INJ 25 MG/1 ML VIAL IV PRN ×2 (08:27)
[2020-05-18] MEDS ORDERED: OXYCODONE-ACETAMINOPHEN 5-325 MG TABLET ONE (08:41)
[2020-05-18 10:18] VITALS: BP 125/72
== END 2020-05-18 09:51 | disposition home or self-care (01) ==
LOC: OROUT 05:29
PROVIDERS: ATTEND Surgery
DX: K60.3 Anal fistula (principal); K64.8 Other hemorrhoids; I10 Essential (primary) hypertension; F17.210 Nicotine dependence, cigarettes, uncomplicated; Z86.73 Personal history of transient ischemic attack (TIA), and cerebral infarction without residual deficits; E11.9 Type 2 diabetes mellitus without complications; Z88.0 Allergy status to penicillin; Z79.84 Long term (current) use of oral hypoglycemic drugs; Z79.4 Long term (current) use of insulin; M10.9 Gout, unspecified; Z79.82 Long term (current) use of aspirin
CPT/HCPCS: 93005; 36415; 82962; 85027; 87635; 80048; 93010; 46030; J2250; J3010; J3490 ×2; J2704; C9803

== ENCOUNTER → 2020-08-22 | Outpatient (CLI) | payer OTHER ==
[2020-08-22 12:26] LABS: APPEARANCE,URINE CLEAR; BILIRUBIN,URINE NEGATIVE (NEGATIVE); COLOR,URINE YELLOW; GLUCOSE, URINE NEGATIVE (NEGATIVE); KETONES,URINE NEGATIVE (NEGATIVE); LEUKOCYTE ESTERASE,URINE NEGATIVE (NEGATIVE); NITRITE,URINE NEGATIVE (NEGATIVE); PROTEIN,URINE NEGATIVE (NEGATIVE); URINE SPECIFIC GRAVITY 1.014; UROBILINOGEN,URINE NEGATIVE mg/dL (<2.0)
[2020-08-22 12:38] LABS: ABSOLUTE BASOPHILS # (AUTO) 0.1 10^3/uL (0.0-0.2); ABSOLUTE EOSINOPHILS # (AUTO) 0.3 10^3/uL (0.0-0.6); ABSOLUTE LYMPHOCYTES (AUTO) 1.1 10^3/uL (0.5-4.7); ABSOLUTE MONOCYTES (AUTO) 0.5 10^3/uL (0.1-1.4); ABSOLUTE NEUT (AUTO) 5.9 10^3/uL (1.7-8.2); BASOPHILS % (AUTO) 1.1 % (0-2); EOSINOPHILS % (AUTO) 3.8 % (0-6); HEMOGLOBIN 16.7 g/dL (13.5-17.0); LYMPHOCYTES % (AUTO) 14.3 % (13-45); MEAN CORPUSCULAR HEMOGLOBIN 35.6 pg (27.0-33.4); MEAN CORPUSCULAR HGB CONC 35.6 g/dL (32.0-36.0); MEAN CORPUSCULAR VOLUME 100 fl (80-97); PLATELET COUNT 230 10^3/uL (150-450); RED CELL DISTRIBUTION WIDTH 13.6 % (11.5-14.0); SEGMENTED NEUTROPHILS % (AUTO) 74.8 % (42-78); TOTAL CELLS COUNTED % (AUTO) 100 %; WHITE BLOOD COUNT 7.9 10^3/uL (4.0-10.5)
[2020-08-22 12:43] LABS: ADD MANUAL MICROSCOPIC YES
[2020-08-22 12:45] LABS: AMORPHOUS SEDIMENT,URINE RARE /HPF
[2020-08-22 12:57] LABS: ALBUMIN 4.7 g/dL (3.5-5.0); ALKALINE PHOSPHATASE 85 U/L (38-126); ANION GAP 8 (5-19); ASPARTATE AMINO TRANSFERASE 64 U/L (17-59); BILIRUBIN,DIRECT 0.4 mg/dL (0.0-0.4); BILIRUBIN,TOTAL 0.8 mg/dL (0.2-1.3); BLOOD UREA NITROGEN 8 mg/dL (7-20); CALCIUM 9.1 mg/dL (8.4-10.2); CARBON DIOXIDE 30 mmol/L (22-30); CHLORIDE 101 mmol/L (98-107); GLUCOSE 132 mg/dL (75-110); POTASSIUM 4.9 mmol/L (3.6-5.0); TOTAL PROTEIN 7.9 g/dL (6.3-8.2); TRIGLYCERIDES 208 mg/dL (<150)
[2020-08-22 13:08] LABS: DIRECT LDL 185 mg/dL (<100)
[2020-08-22 13:15] LABS: VLDL CHOLESTEROL 41.6 mg/dL (10-31)
== END ==
LOC: CCC 11:16
PROVIDERS: ATTEND Family Medicine
DX: Z13.9 Encounter for screening, unspecified (principal)
CPT/HCPCS: 36415; 80053; 80061; 81001; 83036; 84443; 85025

== ENCOUNTER 2020-12-19 22:48 | Emergency (ER) | payer OTHER, SELFPAY ==
[2020-12-19] MEDS ORDERED: KETOROLAC TROMETHAMINE INJ/PF 30 MG/1 ML SDV IV ONE (23:20)
--- NOTE | 2020-12-19 23:22 | ER Document Report ---
ED Medical Screen (RME) - General Chief Complaint: Groin Pain Stated Complaint: HERNIA PAIN Time Seen by Provider: 12/19/20 23:15 [facility]: [facility] [Primary [facility]] - Follow up as needed Mode of Arrival: Ambulatory Information source: Patient TRAVEL OUTSIDE OF THE [place] IN LAST 30 DAYS: No - HPI Patient complains to provider of: Right groin pain Notes: 12/19/20 23:21 Patient here with complaints of right inguinal pain. The patient states the pain started suddenly. It is located in his right groin/inguinal/testicular area as well as the right lower abdomen. Pain seems to come and go and is sharp in nature. No history of kidney stones. He does report a prior history of inguinal hernia which has been repaired in the past but then reoccurred. No dysuria. No fever. Exam: Patient is nontoxic but does appear uncomfortable. Both testicles descended normally with no obvious testicular tenderness or mass. Normal testicular lie with normal cremasterics reflex. Tenderness within the right inguinal canal and right pubic area. Difficult to evaluate for hernia in triage. An initial examination was made on the patient as part of the triage process, and it was determined a more comprehensive evaluation was necessary. Initial orders were placed and patient was transferred to another provider in the ED who assumed care and finished evaluation and plan. - Related Data Allergies/Adverse Reactions: Penicillins Allergy (Verified 12/19/20 23:15) Past Medical History - Past Medical History Cardiac Medical History: Reports: Hx Hypertension Denies: Hx Coronary Artery Disease, Hx Heart Attack Pulmonary Medical History: Denies: Hx Asthma, Hx Bronchitis, Hx COPD, Hx Pneumonia Neurological Medical History: Denies: Hx Cerebrovascular Accident, Hx Seizures Renal/ Medical History: Denies: Hx Peritoneal Dialysis Musculoskeltal Medical History: Denies Hx Arthritis Past Surgical History: Reports: Hx Appendectomy, Hx Orthopedic Surgery - L acl ,, Hx Vascular Surgery - leg stent - Immunizations Immunizations up to date: Yes Hx Diphtheria, Pertussis, Tetanus Vaccination: Yes Physical Exam - Vital signs Vitals: Temp Pulse Resp BP Pulse Ox 97.7 F 96 20 162/90 H 95 12/19/20 22:57 12/19/20 22:57 12/19/20 22:57 12/19/20 22:57 12/19/20 22:57 Course - Vital Signs Vital signs: Temp Pulse Resp BP Pulse Ox 97.7 F 96 20 162/90 H 95 12/19/20 22:57 12/19/20 22:57 12/19/20 22:57 12/19/20 22:57 12/19/20 22:57 Doctor's Discharge - Discharge Referrals: [facility] [Primary Care Provider] - Follow up as needed
[2020-12-19 23:49] LABS: ABSOLUTE BASOPHILS # (AUTO) 0.1 10^3/uL (0.0-0.2); ABSOLUTE EOSINOPHILS # (AUTO) 0.3 10^3/uL (0.0-0.6); ABSOLUTE LYMPHOCYTES (AUTO) 2.3 10^3/uL (0.5-4.7); ABSOLUTE MONOCYTES (AUTO) 0.7 10^3/uL (0.1-1.4); ABSOLUTE NEUT (AUTO) 6.8 10^3/uL (1.7-8.2); BASOPHILS % (AUTO) 1.3 % (0-2); EOSINOPHILS % (AUTO) 3.1 % (0-6); HEMATOCRIT 46.6 % (37.9-51.0); HEMOGLOBIN 16.4 g/dL (13.5-17.0); LYMPHOCYTES % (AUTO) 22.2 % (13-45); MEAN CORPUSCULAR HGB CONC 35.1 g/dL (32.0-36.0); MEAN CORPUSCULAR VOLUME 100 fl (80-97); PLATELET COUNT 182 10^3/uL (150-450); RED BLOOD COUNT 4.68 10^6/uL (4.35-5.55); RED CELL DISTRIBUTION WIDTH 13.7 % (11.5-14.0); SEGMENTED NEUTROPHILS % (AUTO) 66.4 % (42-78); TOTAL CELLS COUNTED % (AUTO) 100 %; WHITE BLOOD COUNT 10.3 10^3/uL (4.0-10.5)
[2020-12-19 23:54] LABS: APPEARANCE,URINE CLEAR; BILIRUBIN,URINE NEGATIVE (NEGATIVE); COLOR,URINE STRAW; GLUCOSE, URINE NEGATIVE (NEGATIVE); KETONES,URINE NEGATIVE (NEGATIVE); LEUKOCYTE ESTERASE,URINE NEGATIVE (NEGATIVE); NITRITE,URINE NEGATIVE (NEGATIVE); PROTEIN,URINE NEGATIVE (NEGATIVE); URINE SPECIFIC GRAVITY 1.002; UROBILINOGEN,URINE NEGATIVE mg/dL (<2.0)
--- NOTE | 2020-12-20 00:06 | ER Document Report ---
Doctor's Note Notes: 12/20/20 00:[address] with p.o. contrast to expedite patient care, patient waiting for full treating provider evaluation.
[2020-12-20 00:08] LABS: ALBUMIN 4.7 g/dL (3.5-5.0); ALKALINE PHOSPHATASE 75 U/L (38-126); ANION GAP 10 (5-19); ASPARTATE AMINO TRANSFERASE 76 U/L (17-59); BILIRUBIN,DIRECT 0.2 mg/dL (0.0-0.4); BILIRUBIN,TOTAL 0.5 mg/dL (0.2-1.3); BLOOD UREA NITROGEN 9 mg/dL (7-20); CALCIUM 9.3 mg/dL (8.4-10.2); CARBON DIOXIDE 29 mmol/L (22-30); CHLORIDE 92 mmol/L (98-107); GLUCOSE 124 mg/dL (75-110); POTASSIUM 4.9 mmol/L (3.6-5.0)
[2020-12-20] MEDS ORDERED: KETOROLAC TROMETHAMINE INJ/PF 30 MG/1 ML SDV ONE (01:52)
[2020-12-20] MEDS ORDERED: MORPHINE SULFATE 10 MG/ML INJ IV ONE ×2 (02:39→03:59)
[2020-12-20] MEDS ORDERED: NORMAL SALINE 1000 ML 1,000 ML IV ONE (02:39)
--- NOTE | 2020-12-20 02:48 | ER Document Report ---
ED General - General Chief Complaint: Groin Pain Stated Complaint: HERNIA PAIN Time Seen by Provider: 12/19/20 23:15 Primary Care Provider: [facility] [Primary Care Provider] - Follow up in 1 week GAGE STANTON MD [ACTIVE STAFF] - Follow up in 1 week Mode of Arrival: Ambulatory Notes: 50-year-old male with history of appendectomy, bilateral inguinal hernias with right inguinal hernia repair greater than 10 years ago at outside facility with recurrence since 2019 presents with 1 day of sudden onset severe constant waxing waning right inguinal pain without associated symptoms similar to prior hernia pain. Patient denies any trauma, vomiting, constipation, obstipation, diarrhea, fever, urinary symptoms, back pain, dizziness, syncope, bleeding diatheses, anticoagulation, genital pain TRAVEL OUTSIDE OF THE [place] IN LAST 30 DAYS: No - Related Data Allergies/Adverse Reactions: Penicillins Allergy (Verified 12/19/20 23:15) Home Medications: HTN MEDS. ALLOPURINOL. METFORMIN. LANTUS. ASA Past Medical History - General Information source: Patient - Social History Smoking Status: Current Every Day Smoker Frequency of alcohol use: Heavy Drug Abuse: None Family History: Reviewed & Not Pertinent - Past Medical History Cardiac Medical History: Reports: Hx Hypertension Denies: Hx Coronary Artery Disease, Hx Heart Attack Pulmonary Medical History: Denies: Hx Asthma, Hx Bronchitis, Hx COPD, Hx Pneumonia Neurological Medical History: Denies: Hx Cerebrovascular Accident, Hx Seizures Renal/ Medical History: Denies: Hx Peritoneal Dialysis Musculoskeletal Medical History: Denies Hx Arthritis Past Surgical History: Reports: Hx Appendectomy, Hx Orthopedic Surgery - L acl ,, Hx Vascular Surgery - leg stent - Immunizations Immunizations up to date: Yes Hx Diphtheria, Pertussis, Tetanus Vaccination: Yes Review of Systems - Review of Systems Notes: REVIEW OF SYSTEMS: CONSTITUTIONAL : Denies fever, chills, or sweats. EENT: Denies recent cold/sinus symptoms, denies throat pain CARDIOVASCULAR: Denies chest pain, ROSENDA RESPIRATORY: Denies cough, denies shortness of breath. GASTROINTESTINAL: + abdominal pain, -nausea/vomiting. GENITOURINARY: Denies difficulty urinating, painful urination. MUSCULOSKELETAL: Denies neck pain, back pain. SKIN: Denies rash or skin lesions. HEMATOLOGIC : Denies easy bruising or bleeding. LYMPHATIC: Denies swollen, enlarged glands. NEUROLOGICAL: Denies headache, denies change in gait. PSYCHIATRIC: Denies anxiety or stress or depression. Physical Exam - Vital signs Vitals: Temp Pulse Resp BP Pulse Ox 97.7 F 96 20 162/90 H 95 12/19/20 22:57 12/19/20 22:57 12/19/20 22:57 12/19/20 22:57 12/19/20 22:57 - Notes Notes: PHYSICAL EXAMINATION: GENERAL: Well-appearing, well-nourished and in no acute distress. HEAD: Atraumatic, normocephalic. EYES: Pupils equal round and appropriate constriction, sclera anicteric, conjunctiva are normal. ENT: nares patent, moist mucous membranes. NECK: Normal range of motion, supple without lymphadenopathy LUNGS: Breath sounds clear to auscultation bilaterally and equal. No wheezes rales or rhonchi. HEART: Regular rate and rhythm without murmurs ABDOMEN: Soft, positive left lower quadrant tenderness, no guarding, no rebound, no CVA tenderness, bilateral testes descended and nontender, some fullness of right inguinal area but no discrete palpable hernia and no mass with coughing EXTREMITIES: Normal range of motion, no pitting or edema. No cyanosis. NEUROLOGICAL: Awake, alert, conversing appropriately, moves all extremities spontaneously. PSYCH: Normal mood, normal affect. SKIN: Warm, Dry, normal turgor, no rashes or lesions noted. Course - Re-evaluation Re-evalutation: 12/20/20 02:48 Right inguinal pain sudden onset with associated symptoms, no signs of infection, rule out incarcerated/shaking hernia, obstruction, renal colic. Labs, CT, pain control, reassess. Patient's sodium mildly low, patient says he is depressed by this as he had [employer] fries before arrival, will give normal saline bolus and will need to follow this up outpatient especially to rule out SIADH with no identifiable precipitating factor. 12/20/20 05:[address] shows fat-containing hernia which is consistent with patient's symptoms and exam, no emergent findings on imaging or lab work. Although fat- containing hernia is not surgical emergency can be painful and well discharge patient with analgesia. Patient feels improved after analgesia and is in agreement with following up outpatient with surgery. I gave patient and his extensive return to ED precautions which he demonstrated understanding of. Gave patient a copy of all results and instructed him to follow-up with his primary doctor regarding mild transaminitis and hyponatremia. Patient tolerating p.o. - Vital Signs Vital signs: Temp Pulse Resp BP Pulse Ox 97.7 F 88 16 141/105 H 95 12/20/20 05:40 12/20/20 05:40 12/20/20 05:40 12/20/20 05:40 12/20/20 05:40 - Laboratory Results Result Diagrams: 12/19/20 23:39 12/19/20 23:39 Laboratory Results Interpreted: 12/19/20 12/19/20 23:39 23:39 MCV 100 H MCH 35.0 H Sodium 130.5 L Chloride 92 L Glucose 124 H AST 76 H ALT 89 H Critical Laboratory Results Reviewed: No Critical Results - Radiology Results Critical Radiology Results Reviewed: No Critical Results Discharge - Discharge Clinical Impression: Transaminitis, Hyponatremia Inguinal hernia Qualifiers: Obstruction and gangrene presence: without obstruction or gangrene Laterality: unilateral Recurrence: recurrent Qualified Code(s): K40.91 - Unilateral inguinal hernia, without obstruction or gangrene, recurrent Abdominal pain Qualifiers: Abdominal location: right lower quadrant Qualified Code(s): R10.31 - Right lower quadrant pain Disposition: HOME, SELF-CARE Additional Instructions: Hernia You have a hernia. A hernia forms at a weak spot in the abdominal wall. Bowel slips out of the abdominal cavity into the weak spot. Hernias tend to occur in the groin (especially in males), the fold of the thigh, the naval, or at a surgical scar. Surgical repair of the defect is usually necessary. The problem tends to get worse. It's important that you follow up as recommended. For now, you should avoid straining, heavy lifting, and vigorous exercise. Complications occur if the hernia becomes tightly stuck. You should come back immediately if the area becomes increasingly painful, swollen, or discolored, or if you develop worsening abdominal pain, fever, or vomiting. Liver Function Abnormality Your evaluation has shown an abnormality of your liver function. This may not be serious, but you need further testing. Abnormal liver function can be caused by alcohol, medicines, virus infections, heart failure, tumors, gallbladder problems, and many other diseases. But sometimes "abnormal" liver enzymes are "normal" -- it's just the way your liver works and there's nothing wrong. We need to be sure. If your doctor thinks the abnormal test was caused by alcohol, medicine, or a recent virus, we may just repeat the liver enzyme test later. Often, the test shows that the elevated enzymes are back to normal. Usually no treatment is necessary, except for avoiding the cause of the liver dysfunction (such as alcohol or a specific medicine). Further testing could include an ultrasound of the liver, liver scan, or perhaps a liver biopsy in difficult cases. Call the doctor if you become increasingly yellow, vomit repeatedly, begin to bruise or bleed easily, or have worsening abdominal pain. Abdominal Pain There are many causes of abdominal pain. Pain can mean a serious problem requiring surgery (such as appendicitis). It can also be an innocent problem that goes away on its own (such as a viral infection). Often, time must pass to determine the cause of pain. The physician does not feel that hospitalization is necessary, at present. Things may change within the next 24 hours. Call the doctor or come back for re- examination if any problems occur, such as: (1) Pain that becomes more severe, steady, or becomes concentrated in one specific area. Also, pain that is more severe with movement or coughing. (2) Vomiting that persists or becomes more frequent. (3) Blood in the vomitus, urine, or bowel movements. Blood in the stool may have a tarry or black appearance. (4) Shaking chills or fever greater than 100 degrees F. (5) The abdomen becomes more distended or swollen. (6) Bowel movements cease. (7) Failure to improve as expected. You have fatty liver and you had mildly abnormal liver function tests and mildly low sodium on your blood work. Bring copies of all your results when you follow-up your primary doctor within 1 week. Prescriptions: Acetaminophen with Codeine [Tylenol #3 Tablet] 1 each PO Q6HP PRN #6 tablet PRN Reason: Severe Pain Referrals: [facility] [Primary Care Provider] - Follow up in 1 week GAGE STANTON MD [ACTIVE STAFF] - Follow up in 1 week
--- NOTE | 2020-12-20 03:55 | RADIOLOGY REPORT (SQ) ---
CLINICAL HISTORY: HX OF INGUINAL HERNIA, PRESENTS WITH RT GROIN PAIN. CREAT 0.80 COMPARISON: None. TECHNIQUE: CT ABDOMEN PELVIS WITH IV CONTRAST on 12/20/2020 12:05 AM [employer] This exam was performed according to our departmental dose-optimization program, which includes automated exposure control, adjustment of the mA and/or kV according to patient size and/or use of iterative reconstruction technique. FINDINGS: Lower lungs are clear. Abdomen: Liver is diffusely fatty in attenuation. There is no biliary dilatation. Gallbladder is normal in appearance. The pancreas and spleen are normal in appearance. The adrenal glands and kidneys are unremarkable. Abdominal aorta is normal in course and caliber without aneurysm. There is no free air. There is no retroperitoneal adenopathy. Pelvis: There is moderate left colonic diverticulosis. Urinary bladder is unremarkable. There is no free fluid. There are small fat-containing inguinal hernias. Appendix is not clearly seen. Skeleton: There are no acute osseous findings. No suspicious bony lesions. IMPRESSION: No definite acute process.
[2020-12-20 05:42] VITALS: BP 141/105
== END 2020-12-20 05:42 | disposition home or self-care (01) ==
LOC: ER 22:48
DX: K40.91 Unilateral inguinal hernia, without obstruction or gangrene, recurrent (principal); R74.01 Elevation of levels of liver transaminase levels; E87.1 Hypo-osmolality and hyponatremia; R10.31 Right lower quadrant pain; R10.814 Left lower quadrant abdominal tenderness; F17.200 Nicotine dependence, unspecified, uncomplicated; I10 Essential (primary) hypertension; Z88.0 Allergy status to penicillin
CPT/HCPCS: 96376; 99285; 96361; 96374; 96375; 36415; 83690; 85025; 80053; 81001; 74177; J1885; J2270; J7030